=== PATIENT | female | born 1960 ===

== ENCOUNTER 2016-08-16 09:20 | Emergency (ER) | payer MEDICARE, MEDICAID ==
[2016-08-16 09:20] VITALS: BMI 24.0
[2016-08-16 09:26] VITALS: BP 127/76; PULSE 62; RESP 18; TEMP 97.9; O2SAT 95
--- NOTE | 2016-08-16 10:18 | ED PDOC ---
HPI: CCC, URI, Sore Throat Time Seen by Provider: 08/16/16 09:44 Chief Complaint (Nursing): ENT Problem History/Exam Limitations: no limitations Onset/Duration Of Symptoms: Days (5), Gradual Current Symptoms Are (Timing): Still Present Location Of Pain: Throat, Sinus/es Sick Contacts (Context): None Associated Symptoms: Sore Throat, Cough. denies: Fever, Chills, Sputum, Neck Pain, Sinus Drainage, Myalgias, Nasal Congestion, Nausea, Vomiting, Diarrhea Ear Symptoms: Bilateral: None Severity: Mild Additional History Per: Patient Additional Complaint(s): c/o sore throat and cough for 5 days, pt denies headache, fever or chills. pt has sinus procedure schedule with Dr. Macias on 09/06. Pt has hx of frequent sinus infections Past Medical History Reviewed: Historical Data, Nursing Documentation, Vital Signs Vital Signs: Last Vital Signs Temp 97.9 F 08/16/16 09:40 Pulse 62 08/16/16 09:40 Resp 18 08/16/16 09:40 BP 127/76 08/16/16 09:40 Pulse Ox 95 08/16/16 10:20 - Medical History PMH: Anxiety, Arthritis, Colonic Polyps, Depression, HTN, Multiple Sclerosis, Pneumonia Denies: CHF, COPD, HIV, Hypercholesterolemia, Hypothyroidism, Chronic Kidney Disease, Rheumatoid Arthritis - Surgical History Surgical History: Endoscopy - Family History Family History: States: Unknown Family Hx - Living Arrangements Living Arrangements: With Family - Social History Current smoker - smoking cessation education provided: No - Immunization History Hx Tetanus Toxoid Vaccination: No Hx Influenza Vaccination: No Hx Pneumococcal Vaccination: No - Home Medications Home Medications: Ambulatory Orders Medication Instructions Recorded Aspirin [Adult Low Dose Aspirin EC] 81 mg PO DAILY 05/27/16 Baclofen [Lioresal] 10 mg PO QID 05/27/16 Citalopram Hydrobromide [Celexa] 40 mg PO DAILY 05/27/16 Gabapentin [Neurontin] 800 mg PO BID 05/27/16 Ibuprofen [Motrin Tab] 1 tab PO QID PRN 05/27/16 Pantoprazole Sodium [Protonix] 40 mg PO DAILY 05/27/16 Biotin 5 mg PO DAILY 08/08/16 Cholecalciferol (Vitamin D3) 10,000 unit PO DAILY 08/08/16 [Vitamin D3] Solifenacin Succinate [Vesicare] 10 mg PO DAILY 08/08/16 Azithromycin [Zithromax] 250 mg PO DAILY #6 tab 08/16/16 Loratadine [Claritin] 10 mg PO DAILY #30 tab 08/16/16 - Allergies Allergies/Adverse Reactions: Allergies Allergy/AdvReac Type Severity Reaction Status Date / Time No Known Allergies Allergy Verified 08/16/16 09:40 Review of Systems ROS Statement: Except As Marked, All Systems Reviewed And Found Negative Constitutional: Negative for: Fever, Chills ENT: Positive for: Nose Congestion, Throat Pain. Negative for: Mouth Pain, Mouth Swelling Cardiovascular: Negative for: Chest Pain, Palpitations Respiratory: Positive for: Cough. Negative for: Shortness of Breath Gastrointestinal: Negative for: Nausea, Vomiting Musculoskeletal: Negative for: Neck Pain Neurological: Negative for: Weakness, Numbness, Altered Mental Status, Headache Physical Exam - Reviewed Nursing Documentation Reviewed: Yes Vital Signs Reviewed: Yes - Physical Exam Appears: Positive for: Uncomfortable Head Exam: Positive for: ATRAUMATIC, NORMAL INSPECTION, NORMOCEPHALIC Eye Exam: Positive for: Normal appearance, EOMI, PERRL ENT: Positive for: Pharynx Is (clear,mm), TM Is/Are (nmlbl, mild ethmoid sinus tenderness), Nasal Congestion, Pharyngeal Erythema. Negative for: Tonsillar Exudate Neck: Positive for: Normal, Painless ROM, Supple Cardiovascular/Chest: Positive for: Regular Rate, Rhythm. Negative for: Chest Non Tender, Edema, Gallop Respiratory: Positive for: Normal Breath Sounds. Negative for: Decreased Breath Sounds, Accessory Muscle Use, Crackles, Rales, Rhonchi, Stridor, Wheezing Gastrointestinal/Abdominal: Positive for: Normal Exam, Bowel Sounds, Soft. Negative for: Tenderness Back: Positive for: Normal Inspection. Negative for: L CVA Tenderness, R CVA Tenderness Extremity: Positive for: Normal ROM. Negative for: Tenderness, Pedal Edema, Calf Tenderness, Capillary Refill, Deformity, Swelling Neurologic/Psych: Positive for: Alert, oracle fusion developer II-XII, Oriented. Negative for: Motor/Sensory Deficits - ECG O2 Sat by Pulse Oximetry: 95 Pulse Ox Interpretation: Normal - Progress ED Course And Treament: advise antibiotics and claritin close f/u with pmd. pt leaves in good spirits Re-evaluation Time: 10:19 Condition: Improved Disposition - Clinical Impression Clinical Impression: Sinusitis - Patient ED Disposition Is Patient to be Admitted: No Counseled Patient/Family Regarding: Studies Performed, Diagnosis, Need For Followup, Rx Given - Disposition Disposition: Routine/Home Disposition Time: 10:24 Condition: GOOD Additional Instructions: F/u with ent Prescriptions: Loratadine [Claritin] 10 mg PO DAILY #30 tab Azithromycin [Zithromax] 250 mg PO DAILY #6 tab
== END 2016-08-16 10:47 | disposition home or self-care (01) ==
LOC: H.ER 09:20
DX: J32.9 Chronic sinusitis, unspecified (principal); J02.9 Acute pharyngitis, unspecified; F41.9 Anxiety disorder, unspecified; G35 Multiple sclerosis; I10 Essential (primary) hypertension; Z79.82 Long term (current) use of aspirin

== ENCOUNTER 2016-09-21 23:03 | Inpatient (IN) | payer MEDICARE, MEDICAID ==
[2016-09-21 23:10] VITALS: BMI 21.5
--- NOTE | 2016-09-21 23:46 | ED PDOC ---
HPI: General Adult Time Seen by Provider: 09/21/16 23:09 Chief Complaint (Nursing): Pain, Chronic Chief Complaint (Provider): fever, body aches, headache History Per: Patient History/Exam Limitations: no limitations Onset/Duration Of Symptoms: Days Have you had recent travel within the past 21 days to any of the following countries: [place], [place], [place] or [place]?: No Current Symptoms Are (Timing): Still Present Additional Complaint(s): 56yo female with PMHx including MS, HTN, anxiety, arthritis, depression presents to the ED with c/o fever and body aches x 2 days and notes frontal headache that began just [employer]. Patient reports having sinus surgery 2 weeks ago at [facility] and was feeling well and able to ambulate with her walker following surgery but has not been feeling well for the past 2 days and has been unable to ambulate. Notes numbness/tingling and weakness to b/l hands and arms. Took ibuprofen with no relief. Denies v/d, sore throat, runny nose, chest pain, SOB, cough, abdominal pain. PCP: Dr. Sherry Beasley Past Medical History Reviewed: Historical Data, Nursing Documentation, Vital Signs Vital Signs: Last Vital Signs Temp 102.3 F H 09/21/16 23:08 Pulse 102 H 09/21/16 23:08 Resp 22 09/21/16 23:08 BP 154/77 H 09/21/16 23:08 Pulse Ox 98 09/22/16 19:33 - Medical History PMH: Anxiety, Arthritis, Colonic Polyps, Depression, HTN, Multiple Sclerosis, Pneumonia - Surgical History Surgical History: Endoscopy Other surgeries: sinus - Family History Family History: States: No Known Family Hx - Social History Current smoker - smoking cessation education provided: No Alcohol: None Drugs: Denies - Immunization History Hx Tetanus Toxoid Vaccination: No Hx Influenza Vaccination: No Hx Pneumococcal Vaccination: No - Home Medications Home Medications: Ambulatory Orders Medication Instructions Recorded Aspirin [Adult Low Dose Aspirin EC] 81 mg PO DAILY 05/27/16 Baclofen [Lioresal] 10 mg PO QID 05/27/16 Citalopram Hydrobromide [Celexa] 40 mg PO DAILY 05/27/16 Gabapentin [Neurontin] 800 mg PO BID 05/27/16 Ibuprofen [Motrin Tab] 1 tab PO QID PRN 05/27/16 Pantoprazole Sodium [Protonix] 40 mg PO DAILY 05/27/16 Biotin 5 mg PO DAILY 08/08/16 Cholecalciferol (Vitamin D3) 10,000 unit PO DAILY 08/08/16 [Vitamin D3] Solifenacin Succinate [Vesicare] 10 mg PO DAILY 08/08/16 Azithromycin [Zithromax] 250 mg PO DAILY #6 tab 08/16/16 Loratadine [Claritin] 10 mg PO DAILY #30 tab 08/16/16 - Allergies Allergies/Adverse Reactions: Allergies Allergy/AdvReac Type Severity Reaction Status Date / Time No Known Allergies Allergy Verified 09/06/16 22:51 Review of Systems ROS Statement: Except As Marked, All Systems Reviewed And Found Negative Constitutional: Positive for: Fever, Other (body aches ) ENT: Negative for: Nose Discharge, Throat Pain Cardiovascular: Negative for: Chest Pain Respiratory: Negative for: Cough, Shortness of Breath Gastrointestinal: Negative for: Vomiting, Abdominal Pain, Diarrhea Neurological: Positive for: Weakness, Numbness, Headache, Other (tingling ) Physical Exam - Reviewed Nursing Documentation Reviewed: Yes Vital Signs Reviewed: Yes - Physical Exam Appears: Positive for: Well, No Acute Distress, Uncomfortable Head Exam: Positive for: ATRAUMATIC (maxillary sinus tenderness), NORMOCEPHALIC Skin: Positive for: Normal Color, Warm, Dry Eye Exam: Positive for: Normal appearance, EOMI, PERRL ENT: Positive for: Normal ENT Inspection, Pharynx Is (clear ). Negative for: Pharyngeal Erythema, Tonsillar Exudate, Tonsillar Swelling Neck: Positive for: Normal, Painless ROM, Supple Cardiovascular/Chest: Positive for: Tachycardia (but regular rhythm ). Negative for: Murmur Respiratory: Positive for: Normal Breath Sounds. Negative for: Wheezing, Respiratory Distress Gastrointestinal/Abdominal: Positive for: Normal Exam, Soft. Negative for: Tenderness Back: Positive for: Normal Inspection. Negative for: L CVA Tenderness, R CVA Tenderness Extremity: Negative for: Normal ROM (decreased range of motion in legs b/l due to weakness consistent with MS exacerbation ), Tenderness, Deformity, Swelling Neurologic/Psych: Positive for: Alert, Oriented, Other (motor weakness in legs b /l, no weakness in arms b/l ) - ECG O2 Sat by Pulse Oximetry: 98 Pulse Ox Interpretation: Normal (RA) - Radiology X-Ray: Interpreted by Me, Viewed By Me X-Ray Interpretation: No Acute Disease Medical Decision Making Medical Decision Makin: Impression: fever in patient w/ MS DDx: 1. UTI vs. other possible sources of infection including sinusitis vs. pneumonia 2. MS exacerbation Plan: VBG CT head and sinuses Labs CXR Toradol 30mg IVP, Tylenol 650mg PO Reassess CT head and CT sinus: Impression: pansinusitis. Discussed with FP resident who will admit. Scribe Attestation: Documented by Wesley Sanchez acting as a scribe for Dominik Reveles MD. Provider Scribe Attestation: All medical record entries made by the Scribe were at my direction and personally dictated by me. I have reviewed the chart and agree that the record accurately reflects my personal performance of the history, physical exam, medical decision making, and the department course for this patient. I have also personally directed, reviewed, and agree with the discharge instructions and disposition. Disposition - Clinical Impression Clinical Impression: Sinusitis, Fever, Exacerbation of multiple sclerosis - Patient ED Disposition Is Patient to be Admitted: Yes Doctor Will See Patient In The: ED Counseled Patient/Family Regarding: Studies Performed, Diagnosis - Disposition Disposition Time: 00:30 Condition: FAIR - Pt Status Changed To: Hospital Disposition Of: Inpatient - Admit Certification Admit to Inpatient:: After my assessment, the patient will require hospitalization for at least two midnights. This is because of the severity of symptoms shown, intensity of services needed, and/or the medical risk in this patient being treated as an outpatient. - POA Present On Arrival: None
[2016-09-22 00:18] LABS: VENOUS BLOOD GAS PCO2 71 mmHg (40-60)
--- NOTE | 2016-09-22 00:38 | CT ---
EXAM: CT Head Without Intravenous Contrast CLINICAL HISTORY: 56 years old, female; Pain; Headache TECHNIQUE: Axial computed tomography images of the head/brain without intravenous contrast. This CT exam was performed using one or more of the following dose reduction techniques: automated exposure control, adjustment of the mA and/or kV according to patient size, and/or use of iterative reconstruction technique. Coronal and sagittal reformatted images were created and reviewed. EXAM DATE/TIME: 09/21/2016 11:43 PM COMPARISON: CT - HEAD W/O CONTRAST 01/27/2016 4:52:23 PM FINDINGS: Brain: Ventricles are normal in size and configuration. There is no midline shift. There are no intra-axial or extra-axial mass lesions or areas of hemorrhage. There are no abnormal fluid collections. Noriega-white differentiation is maintained. Ventricles: See above. Bones/joints: Bones: Cranial vault is intact. There is extensive mucoperiosteal thickening in the maxillary and ethmoid sinuses. There is fracture in the medial sparks of both maxillary antra. There is opacification of the right frontal sinus. There are air-fluid levels in the sphenoid sinus. Soft tissues: unremarkable Sinuses: Unremarkable Mastoid air cells: Ears and mastoids: Middle ears and mastoids are unremarkable Orbits: Orbital contents are unremarkable. IMPRESSION: Pansinusitis; no acute intracranial abnormality
--- NOTE | 2016-09-22 00:43 | CT ---
EXAM: CT Maxillofacial Sinuses Without Intravenous Contrast CLINICAL HISTORY: 56 years old, female; Pain; Face pain; Additional info: Sinus pain TECHNIQUE: Computed tomography images of the maxillofacial sinuses without intravenous contrast. This CT exam was performed using one or more of the following dose reduction techniques: automated exposure control, adjustment of the mA and/or kV according to patient size, and/or use of iterative reconstruction technique. Coronal and sagittal reformatted images were created and reviewed. EXAM DATE/TIME: 09/21/2016 11:43 PM COMPARISON: CT - HEAD W/O CONTRAST 01/27/2016 4:52:23 PM FINDINGS: Paranasal sinuses: There are bilateral medial antrectomy defects. There is diffuse mucoperiosteal thickening in both maxillary antra. There is partial opacification of ethmoid air cells bilaterally. There is opacification of the right frontal sinus. There is minimal mucoperiosteal thickening in the left frontal sinus. There is mucoperiosteal thickening in the sphenoid sinus with a very small air-fluid level. Nasal cavity/septum: Nasal cavity is aerated. Nasopharynx is aerated. Mastoid air cells: Middle ears and mastoids are well-aerated. Bones/joints: There degenerative changes of both temporomandibular joints. Soft tissues: unremarkable Orbits: Orbital contents are unremarkable. Dental: Streak artifact from dental fillings degrades image quality. Brain: There are no acute intracranial abnormalities. IMPRESSION: Pansinusitis
[2016-09-22 00:48] LABS: RBC URINE < 1 /hpf (0-3); URINE BILIRUBIN NEGATIVE (NEGATIVE); URINE BLOOD NEGATIVE (NEGATIVE); URINE COLOR STRAW (YELLOW); URINE GLUCOSE (UA) NEG (Normal); URINE KETONE NEGATIVE (NEGATIVE); URINE LEUKOCYTE ESTERASE NEG Leu/uL (Negative); URINE PROTEIN NEGATIVE (NEGATIVE); URINE UROBILINOGEN 0.2-1.0 mg/dL (0.2-1.0); WBC URINE < 1 /hpf (0-5)
[2016-09-22] MEDS ORDERED: MethylPREDNISolone 1 gm Vial ONE (09:00)
[2016-09-22] MEDS ORDERED: Enoxaparin 40 mg Syringe ONE (09:00)
--- NOTE | 2016-09-22 10:12 | RAD ---
HISTORY: fever COMPARISON: 05/27/2016 FINDINGS: LUNGS: No active pulmonary disease. PLEURA: No significant pleural effusion identified, no pneumothorax apparent. CARDIOVASCULAR: Normal. OSSEOUS STRUCTURES: No significant abnormalities. VISUALIZED UPPER ABDOMEN: Normal. OTHER FINDINGS: None. IMPRESSION: No active disease.
--- NOTE | 2016-09-22 17:56 | CON ---
DATE: 09/22/2016 CHIEF COMPLAINT: Evaluation for patient with multiple sclerosis and generalized weakness. HISTORY OF PRESENT ILLNESS: This is a 56-year-old woman with history of multiple sclerosis diagnosed 10 years ago, on IV Tysabri monthly, who has baseline symptoms of paresthesias in her hands and feet and muscle spasms, on tizanidine and baclofen, who recently had sinus surgery and status post sinus infection, came in for generalized weakness, felt like her legs were floppy and came for further eval uation. Currently, she is not in any pain. No muscle spasms. She is able to lift up her legs. She is back to baseline with baseline paresthesias in her extremities. She is going to be given a gram of IV Solu-Medrol in the ER and 1 gram tomorrow, and will be sent home to follow up with her neurolog ist, Dr. Malin, [facility] for her following imaging which has been scheduled of her brain and cervical spine. She has baseline spinal and intracranial MS lesions and is stable on her IV Tysabri monthly. She is moving all extremities, following commands. Affect is good. PAST MEDICAL HISTORY: Significant for multiple sclerosis diagnosed 10 years ago, on IV Tysabri month ly; muscle spasms, hypertension. REVIEW OF SYSTEMS: A 14-point review of systems is negative except for the HPI. MEDICATIONS: Reviewed via nurses' reconciliation sheet. ALLERGIES: No known drug allergies. SOCIAL HISTORY: No illicit drug use, smoking, or ETOH abuse. FAMILY HISTORY: Noncontributory. PHYSICAL EXAMINATION: VITAL SIGNS: Temperature afebrile, pulse rate of 84, blood pressure 127/56, respiratory rate of 17. GENERAL: The patient is sitting up in bed in no acute distress. HEENT: Atraumatic, normocephalic. PERRLA. Extraocular muscles intact. NECK: Supple, no JVD, no adenopathy noted. LUNGS: Clear to auscultation. No adventitious sounds. HEART: S1, S2, normal rate and rhythm. No murmurs, rubs, or gallops. ABDOMEN: Soft, nontender, nondistended. Bowel sounds present. EXTREMITIES: No clubbing, no cyanosis. Peripheral pulses 2+ felt bilaterally. NEUROLOGIC: The patient is alert, oriented to person, place, month and year. Speech is fluent, with out any errors. Cranial nerves II through XII are intact. MOTOR: Has atrophy in both upper and lower extremities, residual from MS. Has slight increased tone throughout. Is spastic in bilateral lower extremities and has lower extremity weakness 4+ to 5-/5 a t her baseline compared to her upper extremities. Toes are downgoing bilaterally. SENSORY: Light touch, pinprick, proprioception, vibration intact. DTRs 2+ throughout. COORDINATION: [id number] intact. GAIT: Deferred for now. LABORATORY DATA: Reviewed by nurses records. ASSESSMENT AND PLAN: This is a 56-year-old woman with history of multiple sclerosis for the past 10 years, on intravenous monthly Tysabri, who came in with a recent sinus surgery and sinus infection wh o came in with generalized weakness. Her generalized weakness is secondary to diffuse fatigue superi mposed from underlying sinus infection. Unlikely an multiple sclerosis exacerbation. She is at her baseline. At this time, we will just give her 1 gram of IV Solu-Medrol today as well as tomorrow and will be sent home to follow with her neurologist, Dr. Malin, at the [facility] for followup of her i maging that she has already been scheduled for for MRI C-spine and brain. At this time, she is clini mandeep stable from my standpoint and will do outpatient PT at the [facility]. Once again, thank you for this consult. Will sign off. Alcides King MD cc: [id number] TT: 09/22/2016 17:56:17 Confirmation # [id number] Dictation # [id number] rahul
[2016-09-22 20:08] LABS: BASO # 0.1 K/uL (0.0-0.2); BASO % 0.6 % (0.0-2.0); EOS # 0.3 K/uL (0.0-0.7); EOS % 2.4 % (0.0-4.0); HEMATOCRIT 36.7 % (34.0-47.0); LYMPH # 2.6 K/uL (1.0-4.3); LYMPH % 20.1 % (20.0-40.0); MEAN CELL VOLUME 84.6 fl (81.0-99.0); MEAN CORPUSCULAR HEMOGLOBIN 27.6 pg (27.0-31.0); MEAN CORPUSCULAR HGB CONC 32.6 g/dL (33.0-37.0); MEAN PLATELET VOLUME 8.6 fl (7.2-11.7); MONO % 7.5 % (0.0-10.0); NEUT % 69.4 % (50.0-75.0); NRBC % 0.6 % (0.0-0.0); RED CELL DISTRIBUTION WIDTH 16.7 % (11.5-14.5); WHITE BLOOD COUNT 12.9 K/uL (4.8-10.8)
[2016-09-22 20:12] LABS: ALB/GLOB RATIO 1.2 (1.0-2.1); ALKALINE PHOSPHATASE 110 U/L (38-126); ALT/SGPT 66 U/L (9-52); AST/SGOT 34 U/L (14-36); BILIRUBIN,TOTAL 0.6 mg/dl (0.2-1.3); BLOOD UREA NITROGEN 18 mg/dl (7-17); CALCIUM 9.8 mg/dL (8.4-10.2); CARBON DIOXIDE 29 mmol/L (22-30); CHLORIDE 97 mmol/L (98-107); GFR AFRICAN-AMERICAN > 60; GLUCOSE,RANDOM 93 mg/dL (65-105); POTASSIUM 4.6 MMOL/L (3.6-5.0); SODIUM 137 mmol/l (132-148); TOTAL PROTEIN 8.3 G/DL (6.3-8.2)
[2016-09-22] MEDS ORDERED: Calamine/Zinc Oxide LOTION TOP PRN (22:57)
[2016-09-23 00:24] VITALS: RESP 20
[2016-09-23 08:56] LABS: RBC URINE 1 /hpf (0-3); URINE BILIRUBIN NEGATIVE (NEGATIVE); URINE BLOOD NEGATIVE (NEGATIVE); URINE COLOR YELLOW (YELLOW); URINE GLUCOSE (UA) 150 mg/dL (Normal); URINE KETONE NEGATIVE (NEGATIVE); URINE LEUKOCYTE ESTERASE NEG Leu/uL (Negative); URINE PROTEIN NEGATIVE (NEGATIVE); URINE UROBILINOGEN 0.2-1.0 mg/dL (0.2-1.0); WBC URINE 1 /hpf (0-5)
[2016-09-23] MEDS ORDERED: methylPREDNISolone 1 GM in Sodium Chloride 0.9% 250 ML IV SCH (09:00)
[2016-09-23] MEDS ORDERED: Pantoprazole 40 mg EC Tab PO SCH (09:00)
[2016-09-23] MEDS ORDERED: Enoxaparin 40 mg Syringe SC SCH (09:00)
[2016-09-23] MEDS ORDERED: BIOTIN 5 MG PO SCH (09:00)
[2016-09-23] MEDS ORDERED: SOLIFENACIN SUCCINATE 10 MG PO SCH (09:00)
[2016-09-23 10:58] LABS: LYMPH # 1.4 K/uL (1.0-4.3); LYMPH % 11.2 % (20.0-40.0); MEAN CELL VOLUME 83.6 fl (81.0-99.0); MEAN CORPUSCULAR HGB CONC 32.3 g/dL (33.0-37.0); MEAN PLATELET VOLUME 8.3 fl (7.2-11.7); MONO # 0.6 K/uL (0.0-0.8); MONO % 4.4 % (0.0-10.0); NEUT # 10.6 K/uL (1.8-7.0); NEUT % 84.4 % (50.0-75.0); NRBC % 0.2 % (0.0-0.0); RED CELL DISTRIBUTION WIDTH 15.9 % (11.5-14.5); WHITE BLOOD COUNT 12.6 K/uL (4.8-10.8)
[2016-09-23 11:27] LABS: BLOOD UREA NITROGEN 18 mg/dl (7-17); CHLORIDE 97 mmol/L (98-107); GFR AFRICAN-AMERICAN > 60; GLUCOSE,RANDOM 93 mg/dL (65-105); POTASSIUM 4.6 MMOL/L (3.6-5.0); SODIUM 137 mmol/l (132-148)
[2016-09-23 11:28] LABS: ALB/GLOB RATIO 1.2 (1.0-2.1); ALKALINE PHOSPHATASE 110 U/L (38-126); ALT/SGPT 66 U/L (9-52); AST/SGOT 34 U/L (14-36); BILIRUBIN,TOTAL 0.6 mg/dl (0.2-1.3); CALCIUM 9.8 mg/dL (8.4-10.2); CARBON DIOXIDE 29 mmol/L (22-30); TOTAL PROTEIN 8.3 G/DL (6.3-8.2)
--- NOTE | 2016-09-23 15:42 | CP.PCM.DIS ---
Provider - Provider Date of Admission: 09/22/16 09:00 Attending physician: Sharee Rasmussen MD Hospital Course - Lab Results Lab Results: Most Recent Lab Values WBC 12.9 K/uL (4.8-10.8) H 09/22/16 19:44 RBC 4.33 Mil/uL (3.80-5.20) 09/22/16 19:44 Hgb 12.0 g/dL (12.0-16.0) D 09/22/16 19:44 Hct 36.7 % (34.0-47.0) 09/22/16 19:44 MCV 84.6 fl (81.0-99.0) 09/22/16 19:44 MCH 27.6 pg (27.0-31.0) 09/22/16 19:44 MCHC 32.6 g/dL (33.0-37.0) L 09/22/16 19:44 RDW 16.7 % (11.5-14.5) H 09/22/16 19:44 Plt Count 284 K/uL (130-400) 09/22/16 19:44 MPV 8.6 fl (7.2-11.7) 09/22/16 19:44 Neut % (Auto) 69.4 % (50.0-75.0) 09/22/16 19:44 Lymph % (Auto) 20.1 % (20.0-40.0) 09/22/16 19:44 Bledsoe % (Auto) 7.5 % (0.0-10.0) 09/22/16 19:44 Eos % (Auto) 2.4 % (0.0-4.0) 09/22/16 19:44 Baso % (Auto) 0.6 % (0.0-2.0) 09/22/16 19:44 Neut # 9.0 K/uL (1.8-7.0) H 09/22/16 19:44 Lymph # 2.6 K/uL (1.0-4.3) 09/22/16 19:44 Bledsoe # 1.0 K/uL (0.0-0.8) H 09/22/16 19:44 Eos # 0.3 K/uL (0.0-0.7) 09/22/16 19:44 Baso # 0.1 K/uL (0.0-0.2) 09/22/16 19:44 pO2 29 mm/Hg (30-55) L 09/21/16 00:08 VBG pH 7.20 (7.32-7.43) L 09/21/16 00:08 VBG pCO2 71 mmHg (40-60) H* 09/21/16 00:08 VBG HCO3 21.8 mmol/L 09/21/16 00:08 VBG Total CO2 29.9 mmol/L (22-28) H 09/21/16 00:08 VBG O2 Sat (Calc) 44.6 % (40-65) 09/21/16 00:08 VBG Base Excess -2.0 mmol/L (0.0-2.0) L 09/21/16 00:08 VBG Potassium > 20.0 mmol/L (3.6-5.2) H* 09/21/16 00:08 Sodium 124.0 mmol/L (132-148) L 09/21/16 00:08 Chloride 98.0 mmol/L (98-107) 09/21/16 00:08 Glucose 91 mg/dL (65-105) 09/21/16 00:08 Lactate 1.8 mmol/L (0.7-2.1) 09/21/16 00:08 FiO2 21.0 % 09/21/16 00:08 Blood Gas Comments Vb 09/21/16 00:08 Crit Value Called To Dominik recinos md 09/21/16 00:08 Crit Value Called By Noemi 09/21/16 00:08 Crit Value Read Back Y 09/21/16 00:08 Blood Gas Notified Time 16 09/21/16 00:08 Sodium 137 mmol/l (132-148) 09/22/16 19:44 Potassium 4.6 MMOL/L (3.6-5.0) 09/22/16 19:44 Chloride 97 mmol/L (98-107) L 09/22/16 19:44 Carbon Dioxide 29 mmol/L (22-30) 09/22/16 19:44 Anion Gap 16 (10-20) 09/22/16 19:44 BUN 18 mg/dl (7-17) H 09/22/16 19:44 Creatinine 0.7 mg/dL (0.7-1.2) 09/22/16 19:44 Est GFR ( Amer) > 60 09/22/16 19:44 Est GFR (Non-Af Amer) > 60 09/22/16 19:44 Random Glucose 93 mg/dL (65-105) 09/22/16 19:44 Lactic Acid 2.0 MMOL/L (0.7-2.1) 09/22/16 19:44 Calcium 9.8 mg/dL (8.4-10.2) 09/22/16 19:44 Total Bilirubin 0.6 mg/dl (0.2-1.3) 09/22/16 19:44 AST 34 U/L (14-36) 09/22/16 19:44 ALT 66 U/L (9-52) H 09/22/16 19:44 Alkaline Phosphatase 110 U/L (38-126) 09/22/16 19:44 Total Creatine Kinase < 20 U/L (30-135) L 09/23/16 07:05 Total Protein 8.3 G/DL (6.3-8.2) H 09/22/16 19:44 Albumin 4.6 g/dL (3.5-5.0) 09/22/16 19:44 Globulin 3.7 gm/dL (2.2-3.9) 09/22/16 19:44 Albumin/Globulin Ratio 1.2 (1.0-2.1) 09/22/16 19:44 Venous Blood Potassium > 20.0 mmol/L (3.6-5.2) H* 09/21/16 00:08 Urine Color Yellow (YELLOW) 09/22/16 16:00 Urine Clarity Clear (Clear) 09/22/16 16:00 Urine pH 6.0 (5.0-8.0) 09/22/16 16:00 Ur Specific [place] 1.013 (1.003-1.030) 09/22/16 16:00 Urine Protein Negative mg/dL (NEGATIVE) 09/22/16 16:00 Urine Glucose (UA) 150 mg/dL (Normal) 09/22/16 16:00 Urine Ketones Negative mg/dL (NEGATIVE) 09/22/16 16:00 Urine Blood Negative (NEGATIVE) 09/22/16 16:00 Urine Nitrate Negative (NEGATIVE) 09/22/16 16:00 Urine Bilirubin Negative (NEGATIVE) 09/22/16 16:00 Urine Urobilinogen 0.2-1.0 mg/dL (0.2-1.0) 09/22/16 16:00 Ur Leukocyte Esterase Neg [place]ma/uL (Negative) 09/22/16 16:00 Urine RBC (Auto) 1 /hpf (0-3) 09/22/16 16:00 Urine Microscopic WBC 1 /hpf (0-5) 09/22/16 16:00 Ur Squamous Epith Cells < 1 /hpf (0-5) 09/22/16 16:00 Hyaline Casts 0-2 /hpf (0-2) 09/22/16 16:00 Discharge Exam - Head Exam Head Exam: ATRAUMATIC (maxillary sinus tenderness), NORMOCEPHALIC Discharge Plan - Follow Up Plan Condition: FAIR Disposition: HOME/ ROUTINE
[2016-09-23] MEDS ORDERED: Ampicillin/Sulbactam 3 GM in Sodium Chloride 0.9% 100 ML IVPB ONE (15:53)
[2016-09-23] MEDS ORDERED: Amoxicillin-Clav 875-125 mg Tab PO ONE (16:05)
[2016-09-23 17:11] VITALS: BP 125/71; PULSE 68; TEMP 97.7; O2SAT 97
--- NOTE | 2016-09-24 00:27 | CP.PCM.DIS ---
<Carolina Acevedo - Last Filed: 09/24/16 08:00> Provider - Provider Date of Admission: 09/22/16 09:00 Attending physician: Sharee Rasmussen MD Time Spent in preparation of Discharge (in minutes): 25 Diagnosis - Discharge Diagnosis (1) Sinusitis Status: Acute Priority: High (2) Multiple sclerosis Status: Chronic Hospital Course - Lab Results Lab Results: Micro Results 09/22/16 19:30 Blood Blood Culture - Preliminary NO GROWTH AFTER 24 HOURS 09/22/16 19:44 Blood-Venous Blood Culture - Preliminary NO GROWTH AFTER 24 HOURS Most Recent Lab Values WBC 12.9 K/uL (4.8-10.8) H 09/22/16 19:44 RBC 4.33 Mil/uL (3.80-5.20) 09/22/16 19:44 Hgb 12.0 g/dL (12.0-16.0) D 09/22/16 19:44 Hct 36.7 % (34.0-47.0) 09/22/16 19:44 MCV 84.6 fl (81.0-99.0) 09/22/16 19:44 MCH 27.6 pg (27.0-31.0) 09/22/16 19:44 MCHC 32.6 g/dL (33.0-37.0) L 09/22/16 19:44 RDW 16.7 % (11.5-14.5) H 09/22/16 19:44 Plt Count 284 K/uL (130-400) 09/22/16 19:44 MPV 8.6 fl (7.2-11.7) 09/22/16 19:44 Neut % (Auto) 69.4 % (50.0-75.0) 09/22/16 19:44 Lymph % (Auto) 20.1 % (20.0-40.0) 09/22/16 19:44 [place] % (Auto) 7.5 % (0.0-10.0) 09/22/16 19:44 Eos % (Auto) 2.4 % (0.0-4.0) 09/22/16 19:44 Baso % (Auto) 0.6 % (0.0-2.0) 09/22/16 19:44 Neut # 9.0 K/uL (1.8-7.0) H 09/22/16 19:44 Lymph # 2.6 K/uL (1.0-4.3) 09/22/16 19:44 [place] # 1.0 K/uL (0.0-0.8) H 09/22/16 19:44 Eos # 0.3 K/uL (0.0-0.7) 09/22/16 19:44 Baso # 0.1 K/uL (0.0-0.2) 09/22/16 19:44 pO2 29 mm/Hg (30-55) L 09/21/16 00:08 VBG pH 7.20 (7.32-7.43) L 09/21/16 00:08 VBG pCO2 71 mmHg (40-60) H* 09/21/16 00:08 VBG HCO3 21.8 mmol/L 09/21/16 00:08 VBG Total CO2 29.9 mmol/L (22-28) H 09/21/16 00:08 VBG O2 Sat (Calc) 44.6 % (40-65) 09/21/16 00:08 VBG Base Excess -2.0 mmol/L (0.0-2.0) L 09/21/16 00:08 VBG Potassium > 20.0 mmol/L (3.6-5.2) H* 09/21/16 00:08 Sodium 124.0 mmol/L (132-148) L 09/21/16 00:08 Chloride 98.0 mmol/L (98-107) 09/21/16 00:08 Glucose 91 mg/dL (65-105) 09/21/16 00:08 Lactate 1.8 mmol/L (0.7-2.1) 09/21/16 00:08 FiO2 21.0 % 09/21/16 00:08 Blood Gas Comments Vbg 09/21/16 00:08 Crit Value Called To Dominik recinos md 09/21/16 00:08 Crit Value Called By Noemi 09/21/16 00:08 Crit Value Read Back Y 09/21/16 00:08 Blood Gas Notified Time 16 09/21/16 00:08 Sodium 137 mmol/l (132-148) 09/22/16 19:44 Potassium 4.6 MMOL/L (3.6-5.0) 09/22/16 19:44 Chloride 97 mmol/L (98-107) L 09/22/16 19:44 Carbon Dioxide 29 mmol/L (22-30) 09/22/16 19:44 Anion Gap 16 (10-20) 09/22/16 19:44 BUN 18 mg/dl (7-17) H 09/22/16 19:44 Creatinine 0.7 mg/dL (0.7-1.2) 09/22/16 19:44 Est GFR ( Amer) > 60 09/22/16 19:44 Est GFR (Non-Af Amer) > 60 09/22/16 19:44 Random Glucose 93 mg/dL (65-105) 09/22/16 19:44 Lactic Acid 2.0 MMOL/L (0.7-2.1) 09/22/16 19:44 Calcium 9.8 mg/dL (8.4-10.2) 09/22/16 19:44 Total Bilirubin 0.6 mg/dl (0.2-1.3) 09/22/16 19:44 AST 34 U/L (14-36) 09/22/16 19:44 ALT 66 U/L (9-52) H 09/22/16 19:44 Alkaline Phosphatase 110 U/L (38-126) 09/22/16 19:44 Total Creatine Kinase < 20 U/L (30-135) L 09/23/16 07:05 Total Protein 8.3 G/DL (6.3-8.2) H 09/22/16 19:44 Albumin 4.6 g/dL (3.5-5.0) 09/22/16 19:44 Globulin 3.7 gm/dL (2.2-3.9) 09/22/16 19:44 Albumin/Globulin Ratio 1.2 (1.0-2.1) 09/22/16 19:44 Venous Blood Potassium > 20.0 mmol/L (3.6-5.2) H* 09/21/16 00:08 Urine Color Yellow (YELLOW) 09/22/16 16:00 Urine Clarity Clear (Clear) 09/22/16 16:00 Urine pH 6.0 (5.0-8.0) 09/22/16 16:00 Ur Specific [place] 1.013 (1.003-1.030) 09/22/16 16:00 Urine Protein Negative mg/dL (NEGATIVE) 09/22/16 16:00 Urine Glucose (UA) 150 mg/dL (Normal) 09/22/16 16:00 Urine Ketones Negative mg/dL (NEGATIVE) 09/22/16 16:00 Urine Blood Negative (NEGATIVE) 09/22/16 16:00 Urine Nitrate Negative (NEGATIVE) 09/22/16 16:00 Urine Bilirubin Negative (NEGATIVE) 09/22/16 16:00 Urine Urobilinogen 0.2-1.0 mg/dL (0.2-1.0) 09/22/16 16:00 Ur Leukocyte Esterase Neg [place]/uL (Negative) 09/22/16 16:00 Urine RBC (Auto) 1 /hpf (0-3) 09/22/16 16:00 Urine Microscopic WBC 1 /hpf (0-5) 09/22/16 16:00 Ur Squamous Epith Cells < 1 /hpf (0-5) 09/22/16 16:00 Hyaline Casts 0-2 /hpf (0-2) 09/22/16 16:00 - Hospital Course Hospital Course: 56 yo F with PMHx of MS, HTN, anxiety, arthritis, depression who came to ED with fever and body aches x 2 days associated w/ frontal headache that began just MANAGER PACU. Patient had a sinus surgery 2 weeks ago at [facility] by Dr. Macias w/o any complications. In ED patient had fever of 102.3, head CT showed pansinusitis. Patient is admitted for observation. ENT dr. Macias notified, who thinks that findings on CT are consistent w/ edema/ inflamation from surgery. Dr. King (neuro) consulted due to possible MS flare up, recommended Solumedrol 1 gr x 2 and F/U with her Neurologist as outpatient. Patient has Brain MRI scheduled by her Neurologist soon. Patient is feeling much better, afebrile overnight, generalized weakness/ fatigue improved, will D/C patient home w/ F/U by her ENT and Neurologist. D/C instructions given to pt who verbalized understanding. Discharge Exam - Head Exam Head Exam: ATRAUMATIC (maxillary sinus tenderness), NORMOCEPHALIC - Eye Exam Eye Exam: PERRL - ENT Exam ENT Exam: Mucous Membranes Moist - Respiratory Exam Respiratory Exam: Clear to PA & Lateral - Cardiovascular Exam Cardiovascular Exam: RRR, +S1, +S2 - GI/Abdominal Exam GI & Abdominal Exam: Normal Bowel Sounds, Soft. absent: Tenderness - Extremities Exam Extremities exam: pedal pulses present Additional comments: no edema, no calf tenderness. + spasticity DTR increased. decreased Strength. - Neurological Exam Neurological exam: Alert, Oriented x3 Additional comments: + spasticity DTR slightly increased. decreased Strength in LE. - Skin Skin Exam: Normal Color, Warm Discharge Plan - Discharge Medications Prescriptions: Amoxicillin/Clavulanate [Augmentin 875 MG-125 MG] 1 tab PO BID #14 tab - Follow Up Plan Condition: FAIR Disposition: HOME/ ROUTINE Instructions: Sinusitis (GEN) Additional Instructions: F/U with PMD within 1 week. F/U with ENT dr. Macias. F/U with her Neurologist at [facility], Pt has brain MRI scheduled. explained to pt who verbalized understanding. <Vi Navas - Last Filed: 09/24/16 09:22> Provider - Provider Date of Admission: 09/22/16 09:00 Attending physician: Sharee Rasmussen MD Hospital Course - Lab Results Lab Results: Micro Results 09/22/16 19:30 Blood Blood Culture - Preliminary NO GROWTH AFTER 24 HOURS 09/22/16 19:44 Blood-Venous Blood Culture - Preliminary NO GROWTH AFTER 24 HOURS Most Recent Lab Values WBC 12.9 K/uL (4.8-10.8) H 09/22/16 19:44 RBC 4.33 Mil/uL (3.80-5.20) 09/22/16 19:44 Hgb 12.0 g/dL (12.0-16.0) D 09/22/16 19:44 Hct 36.7 % (34.0-47.0) 09/22/16 19:44 MCV 84.6 fl (81.0-99.0) 09/22/16 19:44 MCH 27.6 pg (27.0-31.0) 09/22/16 19:44 MCHC 32.6 g/dL (33.0-37.0) L 09/22/16 19:44 RDW 16.7 % (11.5-14.5) H 09/22/16 19:44 Plt Count 284 K/uL (130-400) 09/22/16 19:44 MPV 8.6 fl (7.2-11.7) 09/22/16 19:44 Neut % (Auto) 69.4 % (50.0-75.0) 09/22/16 19:44 Lymph % (Auto) 20.1 % (20.0-40.0) 09/22/16 19:44 [place] % (Auto) 7.5 % (0.0-10.0) 09/22/16 19:44 Eos % (Auto) 2.4 % (0.0-4.0) 09/22/16 19:44 Baso % (Auto) 0.6 % (0.0-2.0) 09/22/16 19:44 Neut # 9.0 K/uL (1.8-7.0) H 09/22/16 19:44 Lymph # 2.6 K/uL (1.0-4.3) 09/22/16 19:44 [place] # 1.0 K/uL (0.0-0.8) H 09/22/16 19:44 Eos # 0.3 K/uL (0.0-0.7) 09/22/16 19:44 Baso # 0.1 K/uL (0.0-0.2) 09/22/16 19:44 pO2 29 mm/Hg (30-55) L 09/21/16 00:08 VBG pH 7.20 (7.32-7.43) L 09/21/16 00:08 VBG pCO2 71 mmHg (40-60) H* 09/21/16 00:08 VBG HCO3 21.8 mmol/L 09/21/16 00:08 VBG Total CO2 29.9 mmol/L (22-28) H 09/21/16 00:08 VBG O2 Sat (Calc) 44.6 % (40-65) 09/21/16 00:08 VBG Base Excess -2.0 mmol/L (0.0-2.0) L 09/21/16 00:08 VBG Potassium > 20.0 mmol/L (3.6-5.2) H* 09/21/16 00:08 Sodium 124.0 mmol/L (132-148) L 09/21/16 00:08 Chloride 98.0 mmol/L (98-107) 09/21/16 00:08 Glucose 91 mg/dL (65-105) 09/21/16 00:08 Lactate 1.8 mmol/L (0.7-2.1) 09/21/16 00:08 FiO2 21.0 % 09/21/16 00:08 Blood Gas Comments Vbg 09/21/16 00:08 Crit Value Called To Dominik recinos md 09/21/16 00:08 Crit Value Called By Noemi 09/21/16 00:08 Crit Value Read Back Y 09/21/16 00:08 Blood Gas Notified Time 16 09/21/16 00:08 Sodium 137 mmol/l (132-148) 09/22/16 19:44 Potassium 4.6 MMOL/L (3.6-5.0) 09/22/16 19:44 Chloride 97 mmol/L (98-107) L 09/22/16 19:44 Carbon Dioxide 29 mmol/L (22-30) 09/22/16 19:44 Anion Gap 16 (10-20) 09/22/16 19:44 BUN 18 mg/dl (7-17) H 09/22/16 19:44 Creatinine 0.7 mg/dL (0.7-1.2) 09/22/16 19:44 Est GFR ( Amer) > 60 09/22/16 19:44 Est GFR (Non-Af Amer) > 60 09/22/16 19:44 Random Glucose 93 mg/dL (65-105) 09/22/16 19:44 Lactic Acid 2.0 MMOL/L (0.7-2.1) 09/22/16 19:44 Calcium 9.8 mg/dL (8.4-10.2) 09/22/16 19:44 Total Bilirubin 0.6 mg/dl (0.2-1.3) 09/22/16 19:44 AST 34 U/L (14-36) 09/22/16 19:44 ALT 66 U/L (9-52) H 09/22/16 19:44 Alkaline Phosphatase 110 U/L (38-126) 09/22/16 19:44 Total Creatine Kinase < 20 U/L (30-135) L 09/23/16 07:05 Total Protein 8.3 G/DL (6.3-8.2) H 09/22/16 19:44 Albumin 4.6 g/dL (3.5-5.0) 09/22/16 19:44 Globulin 3.7 gm/dL (2.2-3.9) 09/22/16 19:44 Albumin/Globulin Ratio 1.2 (1.0-2.1) 09/22/16 19:44 Venous Blood Potassium > 20.0 mmol/L (3.6-5.2) H* 09/21/16 00:08 Urine Color Yellow (YELLOW) 09/22/16 16:00 Urine Clarity Clear (Clear) 09/22/16 16:00 Urine pH 6.0 (5.0-8.0) 09/22/16 16:00 Ur Specific [place] 1.013 (1.003-1.030) 09/22/16 16:00 Urine Protein Negative mg/dL (NEGATIVE) 09/22/16 16:00 Urine Glucose (UA) 150 mg/dL (Normal) 09/22/16 16:00 Urine Ketones Negative mg/dL (NEGATIVE) 09/22/16 16:00 Urine Blood Negative (NEGATIVE) 09/22/16 16:00 Urine Nitrate Negative (NEGATIVE) 09/22/16 16:00 Urine Bilirubin Negative (NEGATIVE) 09/22/16 16:00 Urine Urobilinogen 0.2-1.0 mg/dL (0.2-1.0) 09/22/16 16:00 Ur Leukocyte Esterase Neg [place]/uL (Negative) 09/22/16 16:00 Urine RBC (Auto) 1 /hpf (0-3) 09/22/16 16:00 Urine Microscopic WBC 1 /hpf (0-5) 09/22/16 16:00 Ur Squamous Epith Cells < 1 /hpf (0-5) 09/22/16 16:00 Hyaline Casts 0-2 /hpf (0-2) 09/22/16 16:00 Discharge Exam - Additional Findings Additional findings: ATTENDING PHYSICIAN STATEMENT/ATTESTATION STATEMENT Patient seen and examined. Case discussed with resident. Patient seen by Neurologist. Agree with plan - patient has received 2 doses of solu medrol, iv antibioitc for sinusitis. Cleared by neurologist for discharge. Patient has her own Neurologist who is following her for her multiple sclerosis as well as ENT MD has performed previous sinus surgery. Will discharge on Augmentin with close outpatient follow up with her physicians. Agree with plan.
== END 2016-09-23 21:25 | disposition home health service (06) | DRG 153 ==
LOC: H.EDERROR 23:03 → H.MEDSURG1 09-22 02:00 → OBSVTOIN 09-22 09:00
PROVIDERS: ADMIT Family Medicine Geriatric Medicine; ATTEND Family Medicine Geriatric Medicine
DX: J01.40 Acute pansinusitis, unspecified (principal); G35 Multiple sclerosis; I10 Essential (primary) hypertension; F41.9 Anxiety disorder, unspecified; F32.9 Major depressive disorder, single episode, unspecified; M19.90 Unspecified osteoarthritis, unspecified site; Z79.82 Long term (current) use of aspirin; Z79.899 Other long term (current) drug therapy; Z86.010 Personal history of colon polyps

== ENCOUNTER 2016-12-07 09:18 | Inpatient (IN) | payer MEDICARE, MEDICAID ==
[2016-12-07 09:28] VITALS: BMI 24.0
[2016-12-07 10:04] LABS: BASO % 0.3 % (0.0-2.0); EOS # 0.3 K/uL (0.0-0.7); EOS % 4.7 % (0.0-4.0); HEMOGLOBIN 11.5 g/dL (12.0-16.0); LYMPH # 0.8 K/uL (1.0-4.3); LYMPH % 11.2 % (20.0-40.0); MEAN CELL VOLUME 82.2 fl (81.0-99.0); MEAN CORPUSCULAR HEMOGLOBIN 27.9 pg (27.0-31.0); MEAN CORPUSCULAR HGB CONC 33.9 g/dL (33.0-37.0); MEAN PLATELET VOLUME 8.6 fl (7.2-11.7); MONO # 0.4 K/uL (0.0-0.8); MONO % 6.2 % (0.0-10.0); NEUT # 5.2 K/uL (1.8-7.0); NEUT % 77.6 % (50.0-75.0); NRBC % 0.2 % (0.0-0.0); RBC 4.13 Mil/uL (3.80-5.20); RED CELL DISTRIBUTION WIDTH 15.4 % (11.5-14.5); WHITE BLOOD COUNT 6.7 K/uL (4.8-10.8)
--- NOTE | 2016-12-07 10:16 | ED PDOC ---
HPI: General Adult Time Seen by Provider: 12/07/16 09:34 Chief Complaint (Nursing): Lower Extremity Problem/Injury Chief Complaint (Provider): Bilateral arm and leg pain History Per: Patient History/Exam Limitations: no limitations Onset/Duration Of Symptoms: Hrs (Since this morning) Current Symptoms Are (Timing): Still Present Additional Complaint(s): Itzel Perez is a 56 y/o female with a past medical history of multiple sclerosis (MS) who woke up today with bilateral arm and leg pain, MS exacerbation. Patient was diagnosed with UTI Monday and prescribed Bactrim. Taking Baclofen without alleviation of pain. Also has erythematous rash diffusely, and has seen camera operator, who did a biopsy and said it was normal. PMD: unknown Past Medical History Reviewed: Historical Data, Nursing Documentation, Vital Signs Vital Signs: Last Vital Signs Temp 98 F 12/07/16 09:26 Pulse 79 12/07/16 09:26 Resp BP 129/76 12/07/16 09:26 Pulse Ox 95 12/07/16 12:15 - Medical History PMH: Anxiety, Arthritis, Colonic Polyps, Depression, HTN, Multiple Sclerosis, Pneumonia - Surgical History Surgical History: Endoscopy - Family History Family History: States: Unknown Family Hx - Social History Ex-Smoker (has not smoked in the last 12 months): Yes Alcohol: None Drugs: Denies - Immunization History Hx Tetanus Toxoid Vaccination: No Hx Influenza Vaccination: No Hx Pneumococcal Vaccination: No - Home Medications Home Medications: Ambulatory Orders Medication Instructions Recorded Aspirin [Adult Low Dose Aspirin EC] 81 mg PO DAILY 05/27/16 Baclofen [Lioresal] 10 mg PO QID 05/27/16 Citalopram Hydrobromide [Celexa] 40 mg PO DAILY 05/27/16 Gabapentin [Neurontin] 800 mg PO BID 05/27/16 Ibuprofen [Motrin Tab] 1 tab PO QID PRN 05/27/16 Pantoprazole Sodium [Protonix] 40 mg PO DAILY 05/27/16 Biotin 5 mg PO DAILY 08/08/16 Cholecalciferol (Vitamin D3) 10,000 unit PO DAILY 08/08/16 [Vitamin D3] Solifenacin Succinate [Vesicare] 10 mg PO DAILY 08/08/16 Azithromycin [Zithromax] 250 mg PO DAILY #6 tab 08/16/16 Loratadine [Claritin] 10 mg PO DAILY #30 tab 08/16/16 Amoxicillin/Clavulanate [Augmentin 1 tab PO BID #14 tab 09/23/16 875 MG-125 MG] - Allergies Allergies/Adverse Reactions: Allergies Allergy/AdvReac Type Severity Reaction Status Date / Time No Known Allergies Allergy Verified 12/07/16 09:31 Review of Systems ROS Statement: Except As Marked, All Systems Reviewed And Found Negative Musculoskeletal: Positive for: Arm Pain, Leg Pain Skin: Positive for: Rash (diffuse) Physical Exam - Reviewed Nursing Documentation Reviewed: Yes Vital Signs Reviewed: Yes - Physical Exam Appears: Positive for: Non-toxic, In Acute Distress (Mild, painful distress) Head Exam: Positive for: ATRAUMATIC, NORMOCEPHALIC Skin: Positive for: Warm, Dry, Rash (Generalized erythematous macular rash with no induration or bleaching) Eye Exam: Positive for: EOMI, Normal appearance, PERRL Neck: Positive for: Normal, Painless ROM, Supple Cardiovascular/Chest: Positive for: Regular Rate, Rhythm. Negative for: Murmur Respiratory: Positive for: Normal Breath Sounds. Negative for: Accessory Muscle Use, Respiratory Distress Gastrointestinal/Abdominal: Positive for: Soft. Negative for: Tenderness Back: Positive for: Normal Inspection. Negative for: Vertebral Tenderness Extremity: Positive for: Other (Weakness of the bilateral legs, but muscle strength of upper extremities is 5/5) Neurologic/Psych: Positive for: Alert, Oriented - Laboratory Results Result Diagrams: 12/07/16 10:00 12/07/16 10:00 - ECG O2 Sat by Pulse Oximetry: 95 (RA) Pulse Ox Interpretation: Normal - Physician Consult Information Time Consulting Physican Contacted: 14:25 Physician Contacted: Ngozi Malin Outcome Of Conversation: Case discussed, does not recommend Solumedrol at this time secondary to risk of immunosuppression, treat with pain medications. Medical Decision Making Medical Decision Making: Time: 09:46 Initial Impression: MS Exacerbation s/p UTI Initial Plan: --CMP --CBC --PTT --Prothrombin time --Urine culture --Urinalysis --Urine dipstick --Toradol 15 mg IV Time: 11:24 --Morphine 2 mg IV Scribe Attestation: Documented by Shari Ballard, acting as a scribe for Deann Ellis MD Provider Scribe Attestation: All medical record entries made by the Scribe were at my direction and personally dictated by me. I have reviewed the chart and agree that the record accurately reflects my personal performance of the history, physical exam, medical decision making, and the department course for this patient. I have also personally directed, reviewed, and agree with the discharge instructions and disposition. Disposition - Clinical Impression Clinical Impression: Intractable pain - Patient ED Disposition Is Patient to be Admitted: Yes - Disposition Disposition Time: 14:31 Condition: STABLE Forms: [facility] (Pakistani) - Pt Status Changed To: Hospital Disposition Of: Inpatient - Admit Certification Admit to Inpatient:: After my assessment, the patient will require hospitalization for at least two midnights. This is because of the severity of symptoms shown, intensity of services needed, and/or the medical risk in this patient being treated as an outpatient. - POA Present On Arrival: None
[2016-12-07 10:23] LABS: ALB/GLOB RATIO 1.3 (1.0-2.1); ALBUMIN 4.1 g/dL (3.5-5.0); ALT/SGPT 100 U/L (9-52); AST/SGOT 81 U/L (14-36); BLOOD UREA NITROGEN 13 mg/dl (7-17); CALCIUM 9.5 mg/dL (8.4-10.2); GFR AFRICAN-AMERICAN > 60; GFR NON-AFRICAN AMERICAN > 60
[2016-12-07 10:26] LABS: INR 1.3 (0.9-1.2); PARTIAL THROMBOPLASTIN TIME 33.7 Seconds (25.6-37.1)
[2016-12-07 14:12] LABS: SQUAMOUS EPITHIAL < 1 /hpf (0-5); URINE BILIRUBIN NEGATIVE (NEGATIVE); URINE BLOOD NEGATIVE (NEGATIVE); URINE CLARITY CLEAR (Clear); URINE COLOR YELLOW (YELLOW); URINE GLUCOSE (UA) NEG (Normal); URINE LEUKOCYTE ESTERASE NEG Leu/uL (Negative); URINE NITRATE NEGATIVE (NEGATIVE); URINE PROTEIN NEGATIVE (NEGATIVE); URINE UROBILINOGEN 0.2-1.0 mg/dL (0.2-1.0)
[2016-12-07] MEDS ORDERED: cefTRIAXone (Rocephin) 1 gm Inj ONE (14:17)
--- NOTE | 2016-12-07 15:23 | CP.PCM.HP ---
History of Present Illness - History of Present Illness History of Present Illness: History of Present Illness: CC/HPI: 56f with hx of MS presents to [facility] with chief complaint of pain in her lower extremities associated with stiffness that began last night when she was laying down. She was recently treated for a UTI by her PCP and took a course of Bactrim. She has no relief from her current home meds and arrived to the [facility] ER via ambulance for evaluation. She had her Baclofen pump adjusted 1 week ago and states the pain started shortly after. Also complains of a skin rash developing in different areas of her body, has been seen by a dermatology who took a biopsy and told her it came back negative. ROS: + Productive cough (chronic) Denies CP, fall, trauma. PMHx: Multiple sclerosis, hearing deficit b/l, multiple uti, depression, Subcutaneous Baclofen in place FHx: Mother had MS SHx: Denies ETOH, DURGS, TOB Allergies: NKDA Meds: See Home Med List PMD: Dr. Sherry Beasley at [facility] Neurologist, MS specialist [facility]: Dr. Malin Urologist: Dr. Coral Dill Course 2mg of Morphine IV x2 15mg of Torodol IV x2 CBC CMP UA , UCx Dr. Betancur spoke with Dr. Malin who stated there is no indication for steroids Present on Admission - Present on Admission Any Indicators Present on Admission: No History of DVT/PE: No Urinary Catheter: No Decubitus Ulcer Present: No History Surgical Site Infection Following: None Past Patient History - Infectious Disease Hx of Infectious Diseases: None - Tetanus Immunizations Tetanus Immunization: Unknown - Past Medical History & Family History Past Medical History?: Yes - Past Social History Alcohol: None Drugs: Denies - CARDIAC Hx Hypertension: Yes - PULMONARY Hx Pneumonia: Yes - NEUROLOGICAL Hx Multiple Sclerosis: Yes - HEENT Hx HEENT Problems: Yes Hx Deafness: Yes ([place] on both ears) Other/Comment: Blurred vision - INTEGUMENTARY Hx Dermatological Problems: Yes Hx Eczema: Yes Hx Psoriasis: Yes - MUSCULOSKELETAL/RHEUMATOLOGICAL Hx Arthritis: Yes - GASTROINTESTINAL Hx Gastrointestinal Disorders: Yes - GENITOURINARY/GYNECOLOGICAL Hx Genitourinary Disorders: Yes Hx Urinary Tract Infection: Yes (treated 5x in last 5 months) Other/Comment: recurrent UTI - PSYCHIATRIC Hx Anxiety: Yes Hx Depression: Yes - SURGICAL HISTORY Hx Surgeries: Yes Other/Comment: cystoscopy (09/16/14). Baclofen pump insertion - ANESTHESIA Hx Anesthesia: Yes Hx Anesthesia Reactions: No Hx Malignant Hyperthermia: No Meds Allergies/Adverse Reactions: Allergies Allergy/AdvReac Type Severity Reaction Status Date / Time No Known Allergies Allergy Verified 12/07/16 09:31 Physical Exam - Constitutional Appears: Well - Head Exam Head Exam: ATRAUMATIC, NORMOCEPHALIC - Neck Exam Neck exam: Negative for: Thyromegaly - Respiratory Exam Respiratory Exam: Rales, NORMAL BREATHING PATTERN. absent: Accessory Muscle Use , Wheezes, Respiratory Distress - Cardiovascular Exam Cardiovascular Exam: REGULAR RHYTHM, +S1, +S2. absent: Systolic Murmur - GI/Abdominal Exam GI & Abdominal Exam: Normal Bowel Sounds, Soft - Back Exam Back exam: NORMAL INSPECTION - Neurological Exam Neurological exam: Alert, Altered, Oriented x3 Additional comments: Lower extremities and upper extremities are rigid to flexion. Motor functions in tact, Power 5/5 in flexion and extension of upper and lower extremities - Expanded Neurological Exam Expanded Neuro motor strength exam: Left Upper Extremity: 5, Right Upper Extremity: 5, Left Lower Extremity: 5, Right Lower Extremity: 5 - Skin Skin Exam: Erythema, Rash Additional comments: Patient has localized region of erythema w/o ulceration or abrasians in Right Calf, Right medial thigh, Left and right auxillary, Under Breast folds bilaterally, lower back, and medial aspect of both arms Results - Vital Signs Recent Vital Signs: Last Vital Signs Temp 98 F 12/07/16 09:26 Pulse 79 12/07/16 15:17 Resp 19 12/07/16 15:17 BP 123/70 12/07/16 15:17 Pulse Ox 97 12/07/16 15:17 - Labs Result Diagrams: 12/07/16 10:00 12/07/16 10:00 Assessment & Plan - Assessment and Plan (Free Text) Assessment: 56 yo female with hx of Multiple Sclerosis presents with intractable pain. Intractable pain -Tylenol -Torodol -Morphine 2mg MS -Resume Home Meds including Baclofen 10mg and Gabapentin 800mg -PT/OT Hx of UTI -afebrile, no white count; asymptomatic -UA negative -pending Urine Cx Urinary Incontinence -c/w Ditropan (oxybutynin) Depression -Citalopram 40mg Insomnia -Temazapam 30 mg Diet -Regular DVT PPX -SCD -Lovenox 40mg
[2016-12-07] MEDS: Morphine 4 MG/ML VIAL IVP SCH ×2 (17:52→21:00)
--- NOTE | 2016-12-07 18:09 | RAD ---
HISTORY: Admission COMPARISON: Chest x-ray performed 09/22/16 TECHNIQUE: Chest, one view. FINDINGS: LUNGS: Subtle opacity at the left lung base may reflect atelectasis. Developing pneumonia cannot be excluded in the proper clinical setting. Please note that chest x-ray has limited sensitivity for the detection of pulmonary masses. PLEURA: No significant pleural effusion identified. No definite pneumothorax . CARDIOVASCULAR: Heart size appears top normal. OSSEOUS STRUCTURES: No acute osseous abnormality identified. VISUALIZED UPPER ABDOMEN: Unremarkable. OTHER FINDINGS: None. IMPRESSION: Subtle opacity at the left lung base may reflect atelectasis. Developing pneumonia cannot be excluded in the proper clinical setting.
[2016-12-07] MEDS ORDERED: Morphine 4 MG/ML VIAL IVP PRN (21:08)
[2016-12-08] MEDS: Enoxaparin 40 mg Syringe SC SCH (08:50)
[2016-12-08] MEDS: Multivitamin With Minerals Tab PO SCH (08:50)
--- NOTE | 2016-12-08 10:45 | CARD ---
APPROVED REPORT EKG Measurement Heart [id number] <Conclusion> Normal sinus rhythm Right bundle branch block Abnormal ECG
--- NOTE | 2016-12-08 12:49 | PQF GENQUE ---
Dr. Rasmussen, MS Exacerbation ruled in or ruled out? OR: Unable to determine ER MD note:hx. MS who woke up today with b/l arm and leg pain, MS exacerbation Impression: MS Exacerbation s/p UTI H and P: hx of MS presents to [facility] with chief complaint of pain in her lower extremities associated with stiffness that began last night when she was laying down. She was recently treated for a UTI by her PCP and took a course of Bactrim. She has no relief from her current home meds and arrived to the [facility] ER via ambulance for evaluation. She had her Baclofen pump adjusted 1 week ago and states the pain started shortly after Assessment: 56 yo female with hx of Multiple Sclerosis presents with intractable pain:Tylenol -Torodol -Morphine 2mg MS -Resume Home Meds including Baclofen 10mg and Gabapentin 800mg -PT/OT This form is a permanent part of the medical record Clarification of your documentation is requested to better reflect the severity of illness and intensity of treatment of your patient. Indicators present [] Specify: [] [] Specify: [] [] Specify: [] [] Specify: [] Location in the medical record that reflects the above clinical findings: [] Treatment Provided: [] PHYSICIAN'S RESPONSE Unable to determine at this time Based on your medical judgment of the clinical indicators outlined above please clarify the following: [] Practitioner response [] If unable to determine, please check the box, sign and date. Present On Admission (POA) Indicator: [] Present at the time of admission [] Not present at the time of admission [] Clinically Undetermined In responding to this query, please exercise your independent professional judgment. The fact that a question is asked does not imply that any particular answer is desired or expected. Thank you for your clarification on this documentation. If you have any questions please call. * Thank you, Ngozi Cook RN BSN ext. # [phone] MTDD
--- NOTE | 2016-12-08 13:12 | CP.PCM.PN ---
Subjective - Date & Time of Evaluation Date of Evaluation: 12/07/16 Time of Evaluation: 13:09 - Subjective Subjective: Today patient was seen in the morning lying in bed comfortably. She was still complaining of pain in her legs bilaterally that had improved since yesterday. She requested to have more pain medication. After the few hours when the patient was seen again she was asking for more "steroids" and that she usually receives more. She became upset and was tearful. She denies chest pain, palpatations, SOB, Abdominal pain, Dysuria, or ocular disturbances. Objective - Vital Signs/Intake and Output Vital Signs (last 24 hours): Temp Pulse Resp BP Pulse Ox 97.7 F 65 18 158/88 H 94 L 12/08/16 07:25 12/08/16 07:25 12/08/16 07:25 12/08/16 07:25 12/08/16 07:25 - Medications Medications: Current Medications Aspirin (Ecotrin) 81 mg PO DAILY [facility] Last Admin: 12/08/16 08:50 Dose: 81 mg Baclofen (Lioresal) 10 mg PO QID [facility] Last Admin: 12/08/16 12:44 Dose: 10 mg Citalopram Hydrobromide (Celexa) 40 mg PO DAILY [facility] Last Admin: 12/08/16 08:50 Dose: 40 mg Enoxaparin Sodium (Lovenox) 40 mg SC DAILY [facility] PRN Reason: Protocol Last Admin: 12/08/16 08:50 Dose: 40 mg Gabapentin (Neurontin) 800 mg PO BID [facility] Last Admin: 12/08/16 08:50 Dose: 800 mg Ibuprofen (Motrin Tab) 600 mg PO DAILY PRN PRN Reason: Pain, moderate (4-7) Morphine Sulfate (Morphine) 2 mg IVP Q4 PRN PRN Reason: Pain, severe (8-10) Multivitamins/Minerals (Therapeutic-M Tab) 1 tab PO DAILY [facility] Last Admin: 12/08/16 08:50 Dose: 1 tab Oxybutynin Chloride (Ditropan Tab) 5 mg PO BID [facility] Last Admin: 12/08/16 08:50 Dose: 5 mg Temazepam (Restoril) 30 mg PO HS [facility] Last Admin: 12/07/16 23:00 Dose: Not Given Tramadol HCl (Ultram) 100 mg PO Q6 PRN PRN Reason: Pain, moderate (4-7) - Labs Labs: PT 13.0 Seconds (9.8-13.1) 12/07/16 10:00 INR 1.3 (0.9-1.2) H 12/07/16 10:00 APTT 33.7 Seconds (25.6-37.1) 12/07/16 10:00 - Constitutional Appears: Agitated - Head Exam Head Exam: ATRAUMATIC, NORMOCEPHALIC - Eye Exam Eye Exam: absent: Periorbital swelling, Periorbital tenderness, PERRL Pupil Exam: absent: PERRL - ENT Exam ENT Exam: Mucous Membranes Moist - Neck Exam Neck Exam: Normal Inspection. absent: Full ROM, Tenderness - Respiratory Exam Respiratory Exam: Accessory Muscle Use, Clear to Ausculation Bilateral. absent : Chest Wall Tenderness, Wheezes, Respiratory Distress - Cardiovascular Exam Cardiovascular Exam: REGULAR RHYTHM, +S1, +S2 - GI/Abdominal Exam GI & Abdominal Exam: Normal Bowel Sounds. absent: Tenderness - Back Exam Back Exam: NORMAL INSPECTION. absent: rash noted - Neurological Exam Additional comments: Lower Extremities: Rigidity, difficult to move passively movements. Power +1 bilaterally. Sensory in tact Upper Extremities: Full ROM, Motor and Sensory in tact, Power +5 Assessment and Plan - Assessment and Plan (Free Text) Assessment: Assessment: 56 yo bed bound female with a hx of Multiple Sclerosis, recent hx of a UTI, Urinary Incontinence, Depression, and Insomnia presents with a 1 day hx of intractable pain of her lower extremities. Intractable of lower extremities, Improving -Unclear etiology -Less likely MS exacerbation, ER physician spoke with pt's MS specialist (Dr. Ellis) who stated there was no indication for steroids at this time. Will consult with neurology. -Torodol 15mg IV -Ultram 100mg PO Q6 -Morphine 2mg IV prn -CPK ordered Transaminitis -Pt does not have abdominal pain, swelling, N/V, or jaundice. AST 81 [id number] ALP 137 -F/U Hepatitis Serology -F/U CPK -F/U CMP MS, chronic -Resume Home Meds including Baclofen 10mg and Gabapentin 800mg -F/U on Neuro consult -PT/OT Recent Hx of UTI, Resolved -afebrile, no white count; asymptomatic -UA negative -UCx negative Urinary Incontinence -c/w Ditropan (oxybutynin) Depression -No suicidal ideations -Citalopram 40mg Insomnia -Temazapam 30 mg Diet -Regular DVT PPX -SCD- refusing bc of pain on legs -Lovenox 40mg
[2016-12-08] MEDS: methylPREDNISolone 1 GM in Sodium Chloride 0.9% 250 ML IV SCH (20:57)
--- NOTE | 2016-12-08 22:58 | CON ---
DATE: 12/08/2016 REASON FOR THE CONSULTATION: Increasing stiffness and pain. CHIEF COMPLAINT: The patient was brought into [facility] following history of abrupt onset of her leg stiffness. From the neurological point of view, I was called in to evaluate her for further management. HISTORY OF PRESENT ILLNESS: Itzel Perez is a 56-year-old unfortunate right-handed female being diagnosed with multiple sclerosis more than 11 years ago, been had second opinion to third opinion, been on multiple medication including Rebif that what she remember, which was not helping her that was switched to Tysabri for the last 2 to 3 years. She could not recall how far the Tysabri was helping her to improve her multiple sclerosis. However, she was told medication is helping. She has recently Tysabri few days ago. She was having urinary complaints and she was seen by urologist and she was given antibiotic. However, the pain initially she is somewhat feel better and then she woke up with stiffness of right lower extremity. No history of back pain. No history of neck pain. No history of new visual or bulbar dysfunction. No history of fever. No history of chills. The pain is so intensified she got 1 dose of steroids and she improved remarkably as per her statement. No urinary incontinence at present. PAST MEDICAL HISTORY: Anxiety, arthritis, depression, hypertension, multiple sclerosis, and pneumonia in the past. PERSONAL HISTORY: Denies smoking or alcohol use. ALLERGIES: NO KNOWN ALLERGIES. REVIEW OF SYSTEMS: All 12-point system being reviewed and accepting the documentation except neurological problem pain and stiffness of her lower extremities. MEDICATIONS: Aspirin, Baclofen, Celexa, Neurontin, Motrin, Protonix, vitamin D, Vesicare, Zithromax, and Claritin. PHYSICAL EXAMINATION: VITAL SIGNS: Blood pressure 130/67, mean arterial pressure of 88, respiratory rate 16, temperature afebrile. NECK: Supple. No carotid bruits. CARDIOPULMONARY: Heart sounds regular. LUNGS: Fair air entry. EXTREMITIES: No edema in legs. NEUROLOGIC: Mental status examination: She is awake, alert, oriented to person, place, and time. She does not seems to depressed. CRANIAL NERVE EXAMINATION: Visual field intact. No afferent pupillary defect noted. Extraocular movement is intact. Good corneal reflex. There is a significant facial asymmetry noted as flattening of the right nasolabial fold. Hearing; has difficulty of hearing right more than her left side. MOTOR EXAMINATION: There is a significant atrophy on left upper extremity to compare with the right upper extremity. Both lower extremities are increased tone with spastic paraparesis noted. Both plantars are with plantar flexion and internally rotated. Both knees are adduction and crossing over. DEEP TENDON REFLEXES: Biceps, brachioradialis, and triceps are absent. Both knees are absent. Both ankles are absent. Plantars are mute. SENSORY EXAMINATION: Seems to be intact. Position sense is intact. COORDINATION: [id number] test is intact on the right side. Left side is mild dysmetria noted. CONCLUSION: Upon reviewing her history and neurological examination, Ms. Robbins Colon been presenting with abrupt onset of increasing stiffness of her both lower extremities associating with urinary tract infection, which probably exacerbation of multiple sclerosis unless otherwise proved. BLOOD WORKUP: WBC 6.7, hemoglobin 11.5, hematocrit 33.9, platelet 216. PT 13.0, INR 1.3, PTT 33.7. Sodium 140, potassium 4.4, chloride 107, bicarbonate is 23, BUN of 13, GFR more than 60. AST 81, ALT 100, alkaline phosphatase 137. RECOMMENDATION: Methylprednisolone 1 g can be given for the next 3 days with protein pump inhibitors. We will continue other medications as she has been taking. Please consider to observe her increasing liver function test, which is probably secondary to her underlying medications where she has been taking. That has to be tapered off. Once the treatment is completed with steroids, the patient can be discharged and should have follow up visit with her Neurologist. Rohit Menard MD [facility]
[2016-12-09 06:46] LABS: ALB/GLOB RATIO 1.3 (1.0-2.1); ALBUMIN 4.1 g/dL (3.5-5.0); ALT/SGPT 70 U/L (9-52); AST/SGOT 33 U/L (14-36); BLOOD UREA NITROGEN 18 mg/dl (7-17); CALCIUM 9.5 mg/dL (8.4-10.2); GFR AFRICAN-AMERICAN > 60; GFR NON-AFRICAN AMERICAN > 60
--- NOTE | 2016-12-09 07:08 | CP.PCM.PN ---
Subjective - Date & Time of Evaluation Date of Evaluation: 12/09/16 Time of Evaluation: 14:19 - Subjective Subjective: Patient was seen and examined this morning. States that she had a good night rest with no problems. She has alsmot no pain in her legs but feels a little but of pain in her thighs. The stiffnesss in her legs have improved from yesterday. She denies chest pain, SOB, N/V/D, abdominal pain, dysuria, calf pain , or lower extremity focal neurological deficits. Objective - Vital Signs/Intake and Output Vital Signs (last 24 hours): Temp Pulse Resp BP Pulse Ox 98 F 68 17 129/70 97 12/09/16 00:00 12/09/16 00:00 12/09/16 00:00 12/09/16 00:00 12/09/16 00:00 - Medications Medications: Current Medications Aspirin (Ecotrin) 81 mg PO DAILY [facility] Last Admin: 12/08/16 08:50 Dose: 81 mg Baclofen (Lioresal) 10 mg PO QID [facility] Last Admin: 12/08/16 21:05 Dose: 10 mg Citalopram Hydrobromide (Celexa) 40 mg PO DAILY [facility] Last Admin: 12/08/16 08:50 Dose: 40 mg Enoxaparin Sodium (Lovenox) 40 mg SC DAILY [facility] PRN Reason: Protocol Last Admin: 12/08/16 08:50 Dose: 40 mg Gabapentin (Neurontin) 800 mg PO BID [facility] Last Admin: 12/08/16 18:37 Dose: 800 mg Methylprednisolone 1 gm/ (Sodium Chloride) 250 mls @ 62.5 mls/hr IV DAILY [facility] Stop: 12/10/16 17:08 Last Admin: 12/08/16 20:57 Dose: 62.5 mls/hr Ibuprofen (Motrin Tab) 600 mg PO DAILY PRN PRN Reason: Pain, moderate (4-7) Morphine Sulfate (Morphine) 2 mg IVP Q4 PRN PRN Reason: Pain, severe (8-10) Last Admin: 12/08/16 13:57 Dose: 2 mg Multivitamins/Minerals (Therapeutic-M Tab) 1 tab PO DAILY [facility] Last Admin: 12/08/16 08:50 Dose: 1 tab Oxybutynin Chloride (Ditropan Tab) 5 mg PO BID [facility] Last Admin: 12/08/16 18:38 Dose: 5 mg Pantoprazole Sodium (Protonix Inj) 40 mg IVP DAILY [facility] Stop: 12/10/16 23:59 Last Admin: 12/08/16 22:41 Dose: 40 mg Temazepam (Restoril) 30 mg PO HS [facility] Last Admin: 12/08/16 22:33 Dose: 30 mg Tramadol HCl (Ultram) 100 mg PO Q6 PRN PRN Reason: Pain, moderate (4-7) - Labs Labs: 12/09/16 06:05 PT 13.0 Seconds (9.8-13.1) 12/07/16 10:00 INR 1.3 (0.9-1.2) H 12/07/16 10:00 APTT 33.7 Seconds (25.6-37.1) 12/07/16 10:00 - Constitutional Appears: Well, No Acute Distress - Head Exam Head Exam: ATRAUMATIC - Respiratory Exam Respiratory Exam: Clear to Ausculation Bilateral. absent: Accessory Muscle Use , Wheezes, Respiratory Distress - Cardiovascular Exam Cardiovascular Exam: REGULAR RHYTHM, +S1, +S2. absent: Murmur - GI/Abdominal Exam GI & Abdominal Exam: Soft, Normal Bowel Sounds - Exam Exam: Bladder Distension - Extremities Exam Extremities Exam: absent: Pedal Edema, Tenderness - Neurological Exam Neurological Exam: Alert, Altered, Awake, Oriented x3 Additional comments: Lower extremitites are rigid and spastic. No reflexes can be illicited. Legs are extended and adducted and feet are plantar flexed. Sensory in tact. Motor- patient can abduct and adduct thighs weakly, not able to flex legs, and has minimal movement in her toes - Psychiatric Exam Psychiatric exam: Normal Affect Assessment and Plan (1) Intractable pain Status: Acute - Assessment and Plan (Free Text) Assessment: 56 yo bed bound female with a hx of Multiple Sclerosis, recent hx of a UTI, Urinary Incontinence, Depression, and Insomnia presents with a 1 day hx of intractable pain of her lower extremities. Intractable of lower extremities -Patient has pain in thighs- minimal and responsive to OTC pain medication -Likely an acute MS exascerbation as per neuro -ER physician spoke with pt's MS specialist (Dr. Ellis) who stated there was no indication for steroids at this time. Neurology consulted and he reported that this is liekly an acute MS flare and recommended Methyl Prednisone 1mg for 3 days -Torodol 15mg IV -Ultram 100mg PO Q6 -Morphine 2mg IV prn -CPK normal -Methylprednison 40mg daily, 1 days -PT/OT evaluation Transaminitis , Resolved -Pt does not have abdominal pain, swelling, N/V, or jaundice. AST 81 [id number] ALP 137 -Likely secondary to medication MS, chronic -Resume Home Meds including Baclofen 10mg and Gabapentin 800mg -F/U on Neuro consult -PT/OT Recent Hx of UTI, Resolved -afebrile, no white count; asymptomatic -UA negative -UCx negative x1 Urinary Incontinence -c/w Ditropan (oxybutynin) Depression -No suicidal ideations -Citalopram 40mg Insomnia -Temazapam 30 mg Diet -Regular DVT PPX -SCD- refusing bc of pain on legs -Lovenox 40mg
[2016-12-09] MEDS: Multivitamin With Minerals Tab PO SCH (08:57)
[2016-12-09] MEDS: Enoxaparin 40 mg Syringe SC SCH (08:57)
[2016-12-09 10:16] VITALS: TEMP 97.9
[2016-12-09] MEDS: methylPREDNISolone 1 GM in Sodium Chloride 0.9% 250 ML IV SCH (14:23)
--- NOTE | 2016-12-09 14:29 | CP.PCM.DIS ---
Provider - Provider Date of Admission: 12/07/16 14:13 Attending physician: Sharee Rasmussen MD Time Spent in preparation of Discharge (in minutes): 30 Diagnosis - Discharge Diagnosis (1) Exacerbation of multiple sclerosis Status: Resolved Hospital Course - Lab Results Lab Results: Most Recent Lab Values WBC 6.7 K/uL (4.8-10.8) 12/07/16 10:00 RBC 4.13 Mil/uL (3.80-5.20) 12/07/16 10:00 Hgb 11.5 g/dL (12.0-16.0) L 12/07/16 10:00 Hct 33.9 % (34.0-47.0) L 12/07/16 10:00 MCV 82.2 fl (81.0-99.0) D 12/07/16 10:00 MCH 27.9 pg (27.0-31.0) 12/07/16 10:00 MCHC 33.9 g/dL (33.0-37.0) 12/07/16 10:00 RDW 15.4 % (11.5-14.5) H 12/07/16 10:00 Plt Count 216 K/uL (130-400) 12/07/16 10:00 MPV 8.6 fl (7.2-11.7) 12/07/16 10:00 Neut % (Auto) 77.6 % (50.0-75.0) H 12/07/16 10:00 Lymph % (Auto) 11.2 % (20.0-40.0) L 12/07/16 10:00 [place] % (Auto) 6.2 % (0.0-10.0) 12/07/16 10:00 Eos % (Auto) 4.7 % (0.0-4.0) H 12/07/16 10:00 Baso % (Auto) 0.3 % (0.0-2.0) 12/07/16 10:00 Neut # 5.2 K/uL (1.8-7.0) 12/07/16 10:00 Lymph # 0.8 K/uL (1.0-4.3) L 12/07/16 10:00 [place] # 0.4 K/uL (0.0-0.8) 12/07/16 10:00 Eos # 0.3 K/uL (0.0-0.7) 12/07/16 10:00 Baso # 0.0 K/uL (0.0-0.2) 12/07/16 10:00 PT 13.0 Seconds (9.8-13.1) 12/07/16 10:00 INR 1.3 (0.9-1.2) H 12/07/16 10:00 APTT 33.7 Seconds (25.6-37.1) 12/07/16 10:00 Sodium 143 mmol/l (132-148) 12/09/16 06:05 Potassium 4.3 MMOL/L (3.6-5.0) 12/09/16 06:05 Chloride 108 mmol/L (98-107) H 12/09/16 06:05 Carbon Dioxide 24 mmol/L (22-30) 12/09/16 06:05 Anion Gap 15 (10-20) 12/09/16 06:05 BUN 18 mg/dl (7-17) H 12/09/16 06:05 Creatinine 0.6 mg/dL (0.7-1.2) L 12/09/16 06:05 Est GFR ( Amer) > 60 12/09/16 06:05 Est GFR (Non-Af Amer) > 60 12/09/16 06:05 Random Glucose 150 mg/dL (65-105) H 12/09/16 06:05 Calcium 9.5 mg/dL (8.4-10.2) 12/09/16 06:05 Total Bilirubin 0.4 mg/dl (0.2-1.3) 12/09/16 06:05 AST 33 U/L (14-36) 12/09/16 06:05 ALT 70 U/L (9-52) H D 12/09/16 06:05 Alkaline Phosphatase 109 U/L (38-126) 12/09/16 06:05 Total Creatine Kinase 34 U/L (30-135) 12/08/16 14:52 Total Protein 7.2 G/DL (6.3-8.2) 12/09/16 06:05 Albumin 4.1 g/dL (3.5-5.0) 12/09/16 06:05 Globulin 3.1 gm/dL (2.2-3.9) 12/09/16 06:05 Albumin/Globulin Ratio 1.3 (1.0-2.1) 12/09/16 06:05 Urine Color Yellow (YELLOW) 12/07/16 13:56 Urine Clarity Clear (Clear) 12/07/16 13:56 Urine pH 6.0 (5.0-8.0) 12/07/16 13:56 Ur Specific [place] 1.010 (1.003-1.030) 12/07/16 13:56 Urine Protein Negative mg/dL (NEGATIVE) 12/07/16 13:56 Urine Glucose (UA) Neg mg/dL (Normal) 12/07/16 13:56 Urine Ketones Negative mg/dL (NEGATIVE) 12/07/16 13:56 Urine Blood Negative (NEGATIVE) 12/07/16 13:56 Urine Nitrate Negative (NEGATIVE) 12/07/16 13:56 Urine Bilirubin Negative (NEGATIVE) 12/07/16 13:56 Urine Urobilinogen 0.2-1.0 mg/dL (0.2-1.0) 12/07/16 13:56 Ur Leukocyte Esterase Neg [place]/uL (Negative) 12/07/16 13:56 Urine RBC (Auto) 3 /hpf (0-3) 12/07/16 13:56 Urine Microscopic WBC 1 /hpf (0-5) 12/07/16 13:56 Ur Squamous Epith Cells < 1 /hpf (0-5) 12/07/16 13:56 - Hospital Course Hospital Course: Discharge Diagnoses: Intractable pain secondary to MS exacerbation Hospital Course: 56 yo bed bound female with a hx of Multiple Sclerosis, recent hx of a UTI, Urinary Incontinence, Depression, and Insomnia presents with a 1 day hx of intractable pain of her lower extremities. For her pain, she was given Torodol, Ultram, and Morphin prn. The ED attending called her MS specialist who did not believe there was any indication for steroids but the neurologist stated that she was likely having an acute exacerbation and placed her on 1mg Methlyprednisone. During her stay, she was found to have transaminitis which resolved after 1-2 days. On day of discharge, patient stated she did not have any leg pain and was seen lying comfortably in bed. When pt was told she would be discharged, she was happy with the news and told us she would follow up with her MS specialist on Monday as well as with one of our PCP's in the clinic. She was offered sub-acute rehab by physical therapy and the residents but she refused and wanted to go home instead. Discharge Medication: ASA 81mg PO daily Baclofen 10mg PO QID Citalopram 40mg PO Daily Gabapentin 800mg PO BID Oxybutinin 5m PO BID Temazepam 30mg PO HS Disposition: Condition upon discharge:Stable Activity: Bed bound Diet: Regular Date of next appt: December [address] Reynolds Discharge Exam - Head Exam Head Exam: ATRAUMATIC Discharge Plan - Follow Up Plan Condition: STABLE Disposition: HOME/ ROUTINE Instructions: Multiple Sclerosis (DC), Acute Rash (DC) Additional Instructions: Patient with follow up with [facility] on December 26 at 13:[address] Reynolds. Will follow up with Neurologist. She will call on Monday.
[2016-12-09 15:57] VITALS: BP 170/81; PULSE 84; RESP 18; O2SAT 95
== END 2016-12-09 18:49 | disposition home or self-care (01) | DRG 60 ==
LOC: H.ER 09:18 → H.ERHOLD 14:13 → H.MEDSURG1 16:47
PROVIDERS: ADMIT Family Medicine Geriatric Medicine; ATTEND Family Medicine Geriatric Medicine
DX: G35 Multiple sclerosis (principal); I10 Essential (primary) hypertension; G47.00 Insomnia, unspecified; F32.9 Major depressive disorder, single episode, unspecified; R32 Unspecified urinary incontinence; Z74.01 Bed confinement status; Z87.891 Personal history of nicotine dependence; F41.9 Anxiety disorder, unspecified; M19.90 Unspecified osteoarthritis, unspecified site; H91.93 Unspecified hearing loss, bilateral; R74.0 Nonspecific elevation of levels of transaminase and lactic acid dehydrogenase [LDH]; L53.9 Erythematous condition, unspecified

== ENCOUNTER 2017-01-10 16:52 | Observation (INO) | payer MEDICAID, MEDICARE ==
[2017-01-10 16:52] VITALS: BMI 24.0
--- NOTE | 2017-01-10 17:33 | ED PDOC ---
HPI: General Adult Time Seen by Provider: 01/10/17 17:22 Chief Complaint (Nursing): Upper Extremity Problem/Injury Chief Complaint (Provider): body pain History Per: Patient Additional Complaint(s): 56-year-old female with history of multiple sclerosis presents to emergency department with bilateral upper extremity pain, body aches and low-grade temperature. Patient also complains of emesis 2 today and sore throat. Patient has had mild cramping abdominal pain. No associated diarrhea or dysuria. She states her usual baclofen pump is not helping with her chronic pain. Past Medical History Reviewed: Historical Data, Nursing Documentation, Vital Signs Vital Signs: Last Vital Signs Temp 97.7 F 01/11/17 16:24 Pulse 73 01/11/17 16:24 Resp 20 01/11/17 16:24 BP 108/60 01/11/17 16:24 Pulse Ox 97 01/12/17 12:26 - Medical History PMH: Anxiety, Arthritis, Colonic Polyps, Depression, HTN, Multiple Sclerosis, Pneumonia - Surgical History Surgical History: Endoscopy - Family History Family History: States: No Known Family Hx - Living Arrangements Living Arrangements: With Family - Social History Current smoker - smoking cessation education provided: No Alcohol: None Drugs: Denies - Home Medications Home Medications: Ambulatory Orders Medication Instructions Recorded Aspirin [Adult Low Dose Aspirin EC] 81 mg PO DAILY 05/27/16 Baclofen [Lioresal] 10 mg PO QID 05/27/16 Gabapentin [Neurontin] 800 mg PO BID 05/27/16 Ibuprofen [Motrin Tab] 600 tab PO DAILY PRN 05/27/16 Pantoprazole Sodium [Protonix] 40 mg PO DAILY 05/27/16 Baclofen Pump IT ASDIR 12/07/16 Citalopram Hydrobromide 40 mg PO DAILY 12/07/16 [Citalopram HBr] Multivitamin [Multi-Vitamin Daily] 1 tab PO DAILY 12/07/16 Natalizumab [Tysabri] 300 mg IV Q30D 12/07/16 Oxybutynin XL [Ditropan XL] 10 mg PO DAILY 12/07/16 Temazepam [Restoril] 30 mg PO HS 12/07/16 - Allergies Allergies/Adverse Reactions: Allergies Allergy/AdvReac Type Severity Reaction Status Date / Time No Known Allergies Allergy Verified 12/07/16 09:31 Review of Systems ROS Statement: Except As Marked, All Systems Reviewed And Found Negative Constitutional: Positive for: Fever, Weakness Cardiovascular: Negative for: Chest Pain Neurological: Positive for: Weakness. Negative for: Headache, Dizziness Physical Exam - Reviewed Nursing Documentation Reviewed: Yes Vital Signs Reviewed: Yes - Physical Exam Appears: Positive for: Well, Non-toxic, No Acute Distress Skin: Negative for: Rash Eye Exam: Positive for: Normal appearance, EOMI, PERRL Neck: Positive for: Pain On Movement Of Neck Cardiovascular/Chest: Positive for: Regular Rate, Rhythm Respiratory: Positive for: Normal Breath Sounds Gastrointestinal/Abdominal: Positive for: Soft. Negative for: Tenderness, Distended, Guarding Extremity: Positive for: Other (marked limitation of movement to bilateral upper and lower extremities, normal for baseline for patient) Neurologic/Psych: Positive for: Alert, Oriented. Negative for: Aphasia, Facial Droop - Laboratory Results Result Diagrams: 01/10/17 19:13 01/10/17 19:13 - ECG O2 Sat by Pulse Oximetry: 97 Pulse Ox Interpretation: Normal Medical Decision Making Medical Decision Makin56 year old with extremity pain and low grade temp Plan: CBC CMP Blood culture Rapid strep and throat culture UA and Urine culture IVF IV toradol IV zofran CXR EKG Patient will intractable pain due to MS flare. Case was d/w family practice resident, Dr. Prince. Patient will be admitted to to observation, med/surg. Patient is aware of and agrees with admission. Disposition - Clinical Impression Clinical Impression: Intractable pain, Multiple sclerosis, relapsing-remitting - Patient ED Disposition Is Patient to be Admitted: Yes - Disposition Disposition Time: 19:56 Condition: FAIR - Pt Status Changed To: Hospital Disposition Of: Observation - POA Present On Arrival: None Results - Lab Results Lab Results: 01/10/17 01/10/17 01/10/17 19:13 19:13 18:35 WBC 10.8 D RBC 4.22 Hgb 11.3 L Hct 34.4 MCV 81.3 MCH 26.7 L MCHC 32.8 L RDW 15.6 H Plt Count 245 Sodium 140 Potassium 3.7 Chloride 106 Carbon Dioxide 24 Anion Gap 14 BUN 16 Creatinine 0.6 L Est GFR ( Amer) > 60 Est GFR (Non-Af Amer) > 60 Random Glucose 89 Calcium 9.3 Total Bilirubin 0.5 AST 39 H ALT 37 Alkaline Phosphatase 121 Total Protein 7.6 Albumin 4.3 Globulin 3.3 Albumin/Globulin Ratio 1.3 Urine Color Urine Clarity Urine pH Ur Specific [place] Urine Protein Urine Glucose (UA) Urine Ketones Urine Blood Urine Nitrate Urine Bilirubin Urine Urobilinogen Ur Leukocyte Esterase Urine RBC (Auto) Urine Microscopic WBC Ur Squamous Epith Cells Ur Renal Epithelial Cell Grp A Beta Strep Ag Negative 01/10/17 01/10/17 18:35 18:32 WBC RBC Hgb Hct MCV MCH MCHC RDW Plt Count Sodium 141 Potassium 3.9 Chloride 105 Carbon Dioxide 24 Anion Gap 16 BUN 17 Creatinine 0.6 L Est GFR ( Amer) > 60 Est GFR (Non-Af Amer) > 60 Random Glucose 86 Calcium 9.5 Total Bilirubin 0.5 AST 43 H ALT 37 Alkaline Phosphatase 122 Total Protein 8.0 Albumin 4.5 Globulin 3.5 Albumin/Globulin Ratio 1.3 Urine Color Yellow Urine Clarity Slighty-cloudy Urine pH 6.0 Ur Specific [place] 1.014 Urine Protein Negative Urine Glucose (UA) Neg Urine Ketones Negative Urine Blood Small Urine Nitrate Negative Urine Bilirubin Negative Urine Urobilinogen 0.2-1.0 Ur Leukocyte Esterase Neg Urine RBC (Auto) 10 H Urine Microscopic WBC 2 Ur Squamous Epith Cells 1 Ur Renal Epithelial Cell 3 Grp A Beta Strep Ag
[2017-01-10] MEDS ORDERED: Sodium Chloride 0.9% 1,000 ML IV STA (17:54)
[2017-01-10 18:48] LABS: RBC URINE 10 /hpf (0-3); RENAL EPITHELIAL 3 /hpf (0-3); URINE BILIRUBIN NEGATIVE (NEGATIVE); URINE BLOOD SMALL (NEGATIVE); URINE COLOR YELLOW (YELLOW); URINE GLUCOSE (UA) NEG (Normal); URINE KETONE NEGATIVE (NEGATIVE); URINE LEUKOCYTE ESTERASE NEG Leu/uL (Negative); URINE PROTEIN NEGATIVE (NEGATIVE); URINE UROBILINOGEN 0.2-1.0 mg/dL (0.2-1.0); WBC URINE 2 /hpf (0-5)
[2017-01-10 18:59] LABS: ALB/GLOB RATIO 1.3 (1.0-2.1); ALKALINE PHOSPHATASE 122 U/L (38-126); ALT/SGPT 37 U/L (9-52); AST/SGOT 43 U/L (14-36); BLOOD UREA NITROGEN 17 mg/dl (7-17); CALCIUM 9.5 mg/dL (8.4-10.2); CARBON DIOXIDE 24 mmol/L (22-30); CHLORIDE 105 mmol/L (98-107); GFR AFRICAN-AMERICAN > 60; GLUCOSE,RANDOM 86 mg/dL (65-105); POTASSIUM 3.9 MMOL/L (3.6-5.0); SODIUM 141 mmol/l (132-148)
[2017-01-10 19:15] LABS: BILIRUBIN,TOTAL 0.5 mg/dl (0.2-1.3)
[2017-01-10 19:31] LABS: HEMATOCRIT 34.4 % (34.0-47.0); MEAN CELL VOLUME 81.3 fl (81.0-99.0); MEAN CORPUSCULAR HEMOGLOBIN 26.7 pg (27.0-31.0); MEAN CORPUSCULAR HGB CONC 32.8 g/dL (33.0-37.0); RED CELL DISTRIBUTION WIDTH 15.6 % (11.5-14.5); WHITE BLOOD COUNT 10.8 K/uL (4.8-10.8)
[2017-01-10 19:34] LABS: ALB/GLOB RATIO 1.3 (1.0-2.1); ALKALINE PHOSPHATASE 121 U/L (38-126); ALT/SGPT 37 U/L (9-52); AST/SGOT 39 U/L (14-36); BILIRUBIN,TOTAL 0.5 mg/dl (0.2-1.3); BLOOD UREA NITROGEN 16 mg/dl (7-17); CALCIUM 9.3 mg/dL (8.4-10.2); CARBON DIOXIDE 24 mmol/L (22-30); CHLORIDE 106 mmol/L (98-107); GFR AFRICAN-AMERICAN > 60; GLUCOSE,RANDOM 89 mg/dL (65-105); POTASSIUM 3.7 MMOL/L (3.6-5.0); SODIUM 140 mmol/l (132-148); TOTAL PROTEIN 7.6 G/DL (6.3-8.2)
--- NOTE | 2017-01-10 22:01 | CP.PCM.HP ---
History of Present Illness - History of Present Illness History of Present Illness: CC/HPI: 56f with hx of MS presents to [facility] with chief complaint of pain in her upper extremities associated with stiffness that began while she was at her Urologist's office. She arrives to to [facility] via ambulance for evaluation. The pain is described as a tightness greater on the Rt. than Lt. Pain is associated with numbness, tingling, and weakness on the Rt. side. Pt. states she has had this type of pain for several years. Pt. denies any headache, visual changes, slurring of speech, fall, trauma, or injury. Pt. states the pain is severe and when she gets this type of pain Baclofen, Gabapentin, and Ibuprofen are not helpful. ROS: Pt. denies any headache, chest pain, dyspnea, fever, or chills. PMHx: Multiple sclerosis, hearing deficit b/l, multiple uti, depression, Subcutaneous Baclofen pump in place FHx: Mother had MS SHx: Denies ETOH, DURGS, TOB Lives with boyfriend Allergies: NKDA Meds: See Home Med List PMD: Dr. Sherry Beasley at [facility], last seen by Dr. Reynolds Neurologist, MS specialist at [facility]: Dr. Malin Urologist: Dr. Coral Dill Course EKG CXR CBC CMP BCx UCx Throat Cx Rapid Group A Strep N/S Bolus Toradol Tylenol Zofran Present on Admission - Present on Admission Any Indicators Present on Admission: No History of DVT/PE: No History of Uncontrolled Diabetes: No Urinary Catheter: No Decubitus Ulcer Present: Yes Decubitus Ulcer Stage: I Review of Systems - Review of Systems Review of Systems: See HPI Past Patient History - Infectious Disease Hx of Infectious Diseases: None - Tetanus Immunizations Tetanus Immunization: Unknown - Past Medical History & Family History Past Medical History?: Yes - Past Social History Alcohol: None Drugs: Denies - CARDIAC Hx Hypertension: Yes - PULMONARY Hx Pneumonia: Yes - NEUROLOGICAL Hx Multiple Sclerosis: Yes - HEENT Hx HEENT Problems: Yes Hx Deafness: Yes ([place] on both ears) Other/Comment: Blurred vision - INTEGUMENTARY Hx Dermatological Problems: Yes Hx Eczema: Yes Hx Psoriasis: Yes - MUSCULOSKELETAL/RHEUMATOLOGICAL Hx Arthritis: Yes - GASTROINTESTINAL Hx Gastrointestinal Disorders: Yes - GENITOURINARY/GYNECOLOGICAL Hx Genitourinary Disorders: Yes Hx Urinary Tract Infection: Yes (treated 5x in last 5 months) Other/Comment: recurrent UTI - PSYCHIATRIC Hx Anxiety: Yes Hx Depression: Yes - SURGICAL HISTORY Hx Surgeries: Yes Other/Comment: cystoscopy (09/16/14). Baclofen pump insertion - ANESTHESIA Hx Anesthesia: Yes Hx Anesthesia Reactions: No Hx Malignant Hyperthermia: No Meds Allergies/Adverse Reactions: Allergies Allergy/AdvReac Type Severity Reaction Status Date / Time No Known Allergies Allergy Verified 12/07/16 09:31 Physical Exam - Constitutional Appears: Non-toxic, No Acute Distress - Head Exam Head Exam: ATRAUMATIC, NORMOCEPHALIC - Eye Exam Eye Exam: Normal appearance. absent: Scleral icterus - ENT Exam ENT Exam: Mucous Membranes Moist - Neck Exam Neck exam: Positive for: Full Rom - Respiratory Exam Respiratory Exam: Clear to Auscultation Bilateral, NORMAL BREATHING PATTERN - Cardiovascular Exam Cardiovascular Exam: REGULAR RHYTHM, +S1, +S2 - GI/Abdominal Exam GI & Abdominal Exam: Soft. absent: Tenderness - Extremities Exam Extremities exam: Positive for: normal capillary refill, pedal pulses present. Negative for: calf tenderness Additional comments: Rt. upper extremties strength +2/5 Lt. upper extremities strenght +3/5 Muscle strength -Bilat lower extremities +1/5 ROM severely limited in upper and lower extremities Results - Vital Signs Recent Vital Signs: Last Vital Signs Temp 99.5 F 01/10/17 20:35 Pulse 96 H 01/10/17 20:35 Resp 18 01/10/17 20:35 BP 126/75 01/10/17 20:35 Pulse Ox 97 01/10/17 20:35 - Labs Result Diagrams: 01/10/17 19:13 01/10/17 19:13 Assessment & Plan - Assessment and Plan (Free Text) Assessment: 56 yo female with hx of Multiple Sclerosis presents with intractable pain. Intractable pain -Ibuprofen 600mg for mild pain -Torodol 30mg for moderate pain -Morphine 2mg for severe pain MS -Resume Home Meds including Baclofen 10mg and reduce Gabapentin 800mg BID to 400mg BID (dose currently being take by pt. as instructed by Dr. Malin) -PT/OT Hx of UTI- Afebrile and No Leucocytosis on UA -afebrile, no white count; asymptomatic -UA negative -Monitor for fever -BCx, UCx, Throat Cx pending Urinary Incontinence -c/w Ditropan (oxybutynin) Deconditoning -PT/OT Stage I sacral Ulcer -wound care consult -Repositon Q2hrs Depression -Citalopram 40mg Insomnia -Temazapam 30 mg Diet -Regular DVT PPX -SCD
[2017-01-11 08:31] VITALS: RESP 20
[2017-01-11] MEDS ORDERED: Multivitamin With Minerals Tab PO SCH (09:00)
--- NOTE | 2017-01-11 09:45 | CP.PCM.PN ---
Subjective - Date & Time of Evaluation Date of Evaluation: 01/11/17 Time of Evaluation: 08:30 Objective - Vital Signs/Intake and Output Vital Signs (last 24 hours): Temp Pulse Resp BP Pulse Ox 98.1 F 72 20 98/62 L 96 01/11/17 08:30 01/11/17 08:30 01/11/17 08:30 01/11/17 08:30 01/11/17 08:30 - Medications Medications: Current Medications Aspirin (Ecotrin) 81 mg PO DAILY [facility] Last Admin: 01/11/17 08:41 Dose: 81 mg Baclofen (Lioresal) 10 mg PO QID [facility] Last Admin: 01/11/17 08:42 Dose: 10 mg Citalopram Hydrobromide (Celexa) 40 mg PO DAILY [facility] Last Admin: 01/11/17 08:41 Dose: 40 mg Gabapentin (Neurontin) 400 mg PO BID [facility] Last Admin: 01/11/17 08:42 Dose: 400 mg Ibuprofen (Motrin Tab) 600 mg PO Q6 PRN PRN Reason: Pain, Mild (1-3) Last Admin: 01/11/17 08:43 Dose: 600 mg Ketorolac Tromethamine (Toradol) 30 mg IVP Q6 PRN PRN Reason: Pain, moderate (4-7) Last Admin: 01/11/17 05:15 Dose: 30 mg Morphine Sulfate (Morphine) 2 mg IVP Q6 PRN PRN Reason: Pain, severe (8-10) Last Admin: 01/11/17 06:17 Dose: 2 mg Multivitamins/Minerals (Therapeutic-M Tab) 1 tab PO DAILY [facility] Last Admin: 01/11/17 08:43 Dose: 1 tab Oxybutynin Chloride (Ditropan Tab) 5 mg PO BID [facility] Last Admin: 01/11/17 08:41 Dose: 5 mg Temazepam (Restoril) 30 mg PO HS [facility] Last Admin: 01/10/17 22:27 Dose: 30 mg Assessment and Plan - Assessment and Plan (Free Text) Assessment: 56 yo female with hx of Multiple Sclerosis presents with intractable pain.
--- NOTE | 2017-01-11 10:34 | RAD ---
HISTORY: fever COMPARISON: Comparison is made to 12/07/2016 FINDINGS: LUNGS: Interval improvement in the previously seen left lung base opacity. Prominent lung markings and possible small infiltrate at the left lower lobe. Otherwise no interval change. PLEURA: No significant pleural effusion identified, no pneumothorax apparent. CARDIOVASCULAR: Normal. OSSEOUS STRUCTURES: No significant abnormalities. VISUALIZED UPPER ABDOMEN: Normal. OTHER FINDINGS: None. IMPRESSION: Interval mild improvement in the previously seen left lung base opacity. Prominent lung markings versus small infiltrate at the left lower lobe.
[2017-01-11] MEDS ORDERED: Lidocaine 5% Patch TD SCH (11:45)
[2017-01-11 16:24] VITALS: BP 108/60; PULSE 73; TEMP 97.7
--- NOTE | 2017-01-11 18:32 | CP.PCM.DIS ---
Provider - Provider Date of Admission: 01/10/17 19:51 Attending physician: Sharee Rasmussen MD Primary care physician: PMD: Dr. Sherry Beasley at [facility], last seen by Dr. Reynolds Neurologist, MS specialist at [facility]: Dr. Malin Consults: none. Time Spent in preparation of Discharge (in minutes): 25 Hospital Course - Lab Results Lab Results: Most Recent Lab Values WBC 10.8 K/uL (4.8-10.8) D 01/10/17 19:13 RBC 4.22 Mil/uL (3.80-5.20) 01/10/17 19:13 Hgb 11.3 g/dL (12.0-16.0) L 01/10/17 19:13 Hct 34.4 % (34.0-47.0) 01/10/17 19:13 MCV 81.3 fl (81.0-99.0) 01/10/17 19:13 MCH 26.7 pg (27.0-31.0) L 01/10/17 19:13 MCHC 32.8 g/dL (33.0-37.0) L 01/10/17 19:13 RDW 15.6 % (11.5-14.5) H 01/10/17 19:13 Plt Count 245 K/uL (130-400) 01/10/17 19:13 Sodium 140 mmol/l (132-148) 01/10/17 19:13 Potassium 3.7 MMOL/L (3.6-5.0) 01/10/17 19:13 Chloride 106 mmol/L (98-107) 01/10/17 19:13 Carbon Dioxide 24 mmol/L (22-30) 01/10/17 19:13 Anion Gap 14 (10-20) 01/10/17 19:13 BUN 16 mg/dl (7-17) 01/10/17 19:13 Creatinine 0.6 mg/dL (0.7-1.2) L 01/10/17 19:13 Est GFR ( Amer) > 60 01/10/17 19:13 Est GFR (Non-Af Amer) > 60 01/10/17 19:13 Random Glucose 89 mg/dL (65-105) 01/10/17 19:13 Calcium 9.3 mg/dL (8.4-10.2) 01/10/17 19:13 Total Bilirubin 0.5 mg/dl (0.2-1.3) 01/10/17 19:13 AST 39 U/L (14-36) H 01/10/17 19:13 ALT 37 U/L (9-52) 01/10/17 19:13 Alkaline Phosphatase 121 U/L (38-126) 01/10/17 19:13 Total Protein 7.6 G/DL (6.3-8.2) 01/10/17 19:13 Albumin 4.3 g/dL (3.5-5.0) 01/10/17 19:13 Globulin 3.3 gm/dL (2.2-3.9) 01/10/17 19:13 Albumin/Globulin Ratio 1.3 (1.0-2.1) 01/10/17 19:13 Urine Color Yellow (YELLOW) 01/10/17 18:32 Urine Clarity Slighty-cloudy (Clear) 01/10/17 18:32 Urine pH 6.0 (5.0-8.0) 01/10/17 18:32 Ur Specific [place] 1.014 (1.003-1.030) 01/10/17 18:32 Urine Protein Negative mg/dL (NEGATIVE) 01/10/17 18:32 Urine Glucose (UA) Neg mg/dL (Normal) 01/10/17 18:32 Urine Ketones Negative mg/dL (NEGATIVE) 01/10/17 18:32 Urine Blood Small (NEGATIVE) 01/10/17 18:32 Urine Nitrate Negative (NEGATIVE) 01/10/17 18:32 Urine Bilirubin Negative (NEGATIVE) 01/10/17 18:32 Urine Urobilinogen 0.2-1.0 mg/dL (0.2-1.0) 01/10/17 18:32 Ur Leukocyte Esterase Neg Elma/uL (Negative) 01/10/17 18:32 Urine RBC (Auto) 10 /hpf (0-3) H 01/10/17 18:32 Urine Microscopic WBC 2 /hpf (0-5) 01/10/17 18:32 Ur Squamous Epith Cells 1 /hpf (0-5) 01/10/17 18:32 Ur Renal Epithelial Cell 3 /hpf (0-3) 01/10/17 18:32 Grp A Beta Strep Ag Negative (NEGATIVE) 01/10/17 18:35 - Hospital Course Hospital Course: 56 y/o F with a PMHx of Multiple Sclerosis admitted with intractable pain on both upper extremities. - Baclofen and Gabapentin (as part of her home medications), Morphine and Toradol were administered during hospital stay. - CXR and EKG were unremarkable. - PT was consulted. Pt declined rehabilitation services. Pt discharged home, stable with NO pain and toleraing PO. Pt instructed to follow up with PMD and neurologist within 2 weeks. - Date & Time of H&P Date of H&P: 01/10/17 Time of H&P: 22:01 Discharge Exam - Head Exam Head Exam: ATRAUMATIC, NORMOCEPHALIC - Eye Exam Eye Exam: Normal appearance - ENT Exam ENT Exam: Mucous Membranes Moist - Neck Exam Neck exam: Full Rom - Respiratory Exam Respiratory Exam: NORMAL BREATHING PATTERN, UNREMARKABLE - Cardiovascular Exam Cardiovascular Exam: REGULAR RHYTHM - GI/Abdominal Exam GI & Abdominal Exam: Unremarkable Discharge Plan - Follow Up Plan Condition: FAIR Disposition: HOME/ ROUTINE Instructions: Multiple Sclerosis (DC) Additional Instructions: Please F/U w/ PMD within 2 weeks. F/U w/ Neurologist within 2 weeks. Continue home medications as prescribed. Follow a bland diet: soft, low in dietary fiber, cooked and not fatty/spicy food. Return to ER if intractable pain re-occurs, loss of function, visual disturbances or weakness. Referrals: Sharee Rasmussen MD [Staff Provider] -
[2017-01-12 12:23] VITALS: O2SAT 97
== END 2017-01-11 18:40 | disposition home or self-care (01) ==
LOC: H.ER 16:52 → H.ERHOLD 19:51 → INTOOBSV 19:51 → H.MEDSURG1 22:07
PROVIDERS: ADMIT Family Medicine Geriatric Medicine; ATTEND Family Medicine Geriatric Medicine
DX: M79.602 Pain in left arm (principal); M79.601 Pain in right arm; G35 Multiple sclerosis; H91.93 Unspecified hearing loss, bilateral; I10 Essential (primary) hypertension; F32.9 Major depressive disorder, single episode, unspecified; F41.9 Anxiety disorder, unspecified; L89.151 Pressure ulcer of sacral region, stage 1; R32 Unspecified urinary incontinence; G47.00 Insomnia, unspecified; M19.90 Unspecified osteoarthritis, unspecified site
CPT/HCPCS: 71010; 80053; 81003; 85027; 87040; 87070; 87086; 87430; 97162; 97167; 99285; G0378; G8978; G8979; G8987; G8988; J1885; J2270; J2405; J7040